=== PATIENT | female | born 1930 | race Caucasian/White ===

== ENCOUNTER 2016-08-13 20:40 | Emergency (ER) | payer MEDICARE, OTHER ==
[2016-08-13] MEDS ORDERED: SODIUM CHLORIDE 0.9% 1,000 ML IV STA (22:07)
[2016-08-13] MEDS ORDERED: ACETAMINOPHEN TAB 500 MG TAB PO STA (22:07)
--- NOTE | 2016-08-13 22:22 | ED ---
Fever HPI - General Chief Complaint: Fever Stated Complaint: Anxiety Time Seen by Provider: 08/13/16 21:26 Source: patient Mode of arrival: wheelchair Limitations: no limitations - History of Present Illness Initial Comments: He has a difficulty urinating for the last few days it's painful is more frequent and she feels bit of pressure in the pelvic area, she went to the family doctor they aren't treating her for cystitis with the Macrobid but symptoms are getting worse and today she developed the fever. Notice that mom was shaking and had some breakers she is complaining about some back pain but then she has a chronic back pain for years. Denies any headaches no neck stiffness no chest pain or shortness of breath no abdominal pain diarrhea system is unremarkable otherwise - Related Data Home Medications Medication Instructions Recorded Confirmed Calcium Carbonate [Calcium] 600 mg PO DAILY 08/13/16 08/13/16 Cholecalciferol [Vitamin D3] 1,000 unit PO DAILY 08/13/16 08/13/16 Lisinopril [Zestril] 10 mg PO DAILY 08/13/16 08/13/16 Loratadine [Claritin] 10 mg PO DAILY 08/13/16 08/13/16 traMADol HCL [Ultram] 50 mg PO QID PRN 08/13/16 08/13/16 Previous Rx's Medication Instructions Recorded Ciprofloxacin HCl [Cipro] 500 mg PO Q12HR #20 tablet 08/13/16 Allergies Allergy/AdvReac Type Severity Reaction Status Date / Time aspirin AdvReac Nausea & Verified 08/13/16 22:02 Vomiting Review of Systems ROS Statement: Those systems with pertinent positive or pertinent negative responses have been documented in the HPI. ROS Other: All systems not noted in ROS Statement are negative. Past Medical History Past Medical History: Cancer, Hypertension Additional Past Medical History / Comment(s): Scoliosis; Osteoporosis; Uterine cancer (1970s) History of Any Multi-Drug Resistant Organisms: None Reported Past Surgical History: Cholecystectomy, Hysterectomy Additional Past Surgical History / Comment(s): Lap Chad Past Psychological History: Anxiety Smoking Status: Current every day smoker Past Alcohol Use History: None Reported Past Drug Use History: None Reported General Exam - General Exam Comments Initial Comments: General: The patient is awake and alert, in acute distress face is bit flushed GCS is 15 no respiratory distress Skin: Skin is warm and dry and no rashes or lesions are noted. Eye: Pupils are equal, round and reactive to light, extra-ocular movements are intact; there is normal conjunctiva bilaterally. Ears, nose, mouth and throat: There are moist mucous membranes and no oral lesions. Neck: The neck is supple, there is no tenderness or JVD. Cardiovascular: There is a regular rate and rhythm. No murmur, rub or gallop is appreciated. Respiratory: To auscultation bilateral, decreased breath sounds and crackles at the bases Gastrointestinal: D tender in suprapubic area and over the one side flank but she stated that she has it's back pain for years Back: There is no tenderness to palpation in the midline. There is no obvious deformity. Musculoskeletal: Normal ROM, no tenderness, There is no pedal edema. There is no calf tenderness or swelling. No cords were appreciated. Neurological: CN II-XII intact, Cranial nerves III through XII are intact. There are no obvious motor or sensory deficits. Coordination appears grossly intact. Speech is normal. Psychiatric: Cooperative, appropriate mood & affect, normal judgment. Limitations: no limitations Course Vital Signs 08/13/16 20:53 Temperature 101.2 F H Pulse Rate 95 Respiratory 20 Rate Blood Pressure 215/85 O2 Sat by Pulse 95 Oximetry He was reassessed at 2315 she was advised to stay inpatient for IV antibiotics considering the possibility of pyelonephritis since her urinalysis was positive she developed a fever and she has a flank pain also was concerned about her blood pressure initial blood pressure was 2:15 systolic and now she feels better her blood pressures down to 159 according to the portable blood pressure machine bedside and she has a 2 g of Rocephin and some fluids and she has excellent support she lives with her daughter in her son-in-law and they said the CARE of her if symptoms get worse to bring her back actually I had paged Dr. Cook for the admission but then respecting patient's wishes be sent home on Cipro 500 mg twice daily Tylenol as needed and she does have tramadol in her possession which she uses for the back pain Medical Decision Making - Lab Data Result diagrams: 08/13/16 22:11 08/13/16 22:11 Lab Results 08/13/16 08/13/16 08/13/16 Range/Units 22:11 22:11 22:11 WBC 14.0 H (3.8-10.6) k/uL RBC 4.09 (3.80-5.40) m/uL Hgb 12.1 (11.4-16.0) gm/dL Hct 37.8 (34.0-46.0) % MCV 92.4 (80.0-100.0) fL MCH 29.7 (25.0-35.0) pg MCHC 32.1 (31.0-37.0) g/dL RDW 13.1 (11.5-15.5) % Plt Count 262 (150-450) k/uL Neutrophils % 85 % Lymphocytes % 5 % Monocytes % 6 % Eosinophils % 2 % Basophils % 0 % Neutrophils # 11.9 H (1.3-7.7) k/uL Lymphocytes # 0.7 L (1.0-4.8) k/uL Monocytes # 0.8 (0-1.0) k/uL Eosinophils # 0.3 (0-0.7) k/uL Basophils # 0.0 (0-0.2) k/uL Sodium 138 (137-145) mmol/L Potassium 3.7 (3.5-5.1) mmol/L Chloride 102 (98-107) mmol/L Carbon Dioxide 27 (22-30) mmol/L Anion Gap 9 mmol/L BUN 23 H (7-17) mg/dL Creatinine 0.73 (0.52-1.04) mg/dL Est GFR (MDRD) Af Amer >60 (>60 ml/min/1.73 sqM) Est GFR (MDRD) Non-Af >60 (>60 ml/min/1.73 sqM) Glucose 126 H (74-99) mg/dL Plasma Lactic Acid Vineet 1.0 (0.7-2.0) mmol/L Calcium 10.0 (8.4-10.2) mg/dL Total Bilirubin 0.4 (0.2-1.3) mg/dL AST 30 (14-36) U/L ALT 34 (9-52) U/L Alkaline Phosphatase 96 (38-126) U/L Total Protein 6.8 (6.3-8.2) g/dL Albumin 3.9 (3.5-5.0) g/dL Disposition Clinical Impression: Fever, Cystitis Disposition: HOME SELF-CARE Condition: Fair Instructions: Fever in Adults (ED) Prescriptions: Ciprofloxacin HCl [Cipro] 500 mg PO Q12HR #20 tablet Referrals: Tawnya Dale DO [Primary Care Provider] - 1-2 days
[2016-08-13 22:24] LABS: Basophils % (A) 0 %; CH 30.2; CHCM 32.8; Eosinophils # (A) 0.3 k/uL (0-0.7); Eosinophils % (A) 2 %; HCT 37.8 % (34.0-46.0); HDW 2.39; HGB 12.1 gm/dL (11.4-16.0); Luc # (Auto) 0.21; Luc % (Auto) 2; Lymphocytes # (A) 0.7 k/uL (1.0-4.8); Lymphocytes % (A) 5 %; MCH 29.7 pg (25.0-35.0); MCHC 32.1 g/dL (31.0-37.0); MCV 92.4 fL (80.0-100.0); Mean Platelet Volume 7.2; Monocytes # (A) 0.8 k/uL (0-1.0); Monocytes % (A) 6 %; Neutrophils # (A) 11.9 k/uL (1.3-7.7); Neutrophils % (A) 85 %; RBC 4.09 m/uL (3.80-5.40); RDW 13.1 % (11.5-15.5)
[2016-08-13 22:46] LABS: ALT 34 U/L (9-52); AST 30 U/L (14-36); Alkaline Phosphatase 96 U/L (38-126); Anion Gap 9 mmol/L; Blood Urea Nitrogen 23 mg/dL (7-17); Carbon Dioxide 27 mmol/L (22-30); Chloride 102 mmol/L (98-107); Glucose 126 mg/dL (74-99); Non-African American GFR(MDRD) >60 (>60 ml/min/1.73 sqM); Potassium 3.7 mmol/L (3.5-5.1); Sodium 138 mmol/L (137-145); Total Bilirubin 0.4 mg/dL (0.2-1.3); Total Protein 6.8 g/dL (6.3-8.2)
[2016-08-13 23:40] VITALS: BP 159/69; PULSE 82; RESP 14; TEMP 99.2
[2016-08-13 23:54] LABS: Appearance,Urine Cloudy (Clear); Bilirubin,Urine Negative (Negative); Glucose,Urine (UA) Negative (Negative); Ketones,Urine Negative (Negative); Leukocyte Esterase,Urine Moderate (Negative); Mucus,Urine Rare /hpf; Nitrite,Urine Negative (Negative); Particle Count 6881; Protein,Urine 1+ (Negative); RBC,Urine >182 /hpf (0-5); Specific Gravity,Urine 1.011 (1.001-1.035); Squamous Epithelial Cell,Urine 1 /hpf (0-4); UA Billing (MACRO vs. MICRO) MICRO; Urobilinogen,Urine <2.0 mg/dL (<2.0); WBC,Urine 30 /hpf (0-5)
== END 2016-08-13 23:49 | disposition home or self-care (01) ==
LOC: EC 20:40
DX: N30.90 Cystitis, unspecified without hematuria (principal); R50.9 Fever, unspecified; I10 Essential (primary) hypertension; M81.0 Age-related osteoporosis without current pathological fracture; F17.200 Nicotine dependence, unspecified, uncomplicated; Z79.899 Other long term (current) drug therapy; Z88.6 Allergy status to analgesic agent; Z85.42 Personal history of malignant neoplasm of other parts of uterus; Z90.710 Acquired absence of both cervix and uterus
CPT/HCPCS: 36415; 80053; 83605; 85025; 81001; 87040; 87086; 99283; 96365; 96361; J0696

== ENCOUNTER → 2016-09-22 | Outpatient (CLI) | payer MEDICARE, OTHER ==
--- NOTE | 2016-09-22 16:40 | US ---
EXAMINATION TYPE: US kidneys/renal and bladder DATE OF EXAM: 09/22/2016 COMPARISON: NONE CLINICAL HISTORY: UTI N39.0, R39.14 Incomplete Bladder Emptying. Frequent UTI's, lower back and pelvi c pain EXAM MEASUREMENTS: Right Kidney: 11.3 x 4.8 x 4.3 cm Left Kidney: 9.6 x 4.0 x 3.9 cm Post Void Residual Volume: 596.1 mL Right Kidney: moderate hydronephrosis extending into calyces with multiple echogenic shadowing foci w ithin dilated proximal ureter Left Kidney: mild hydronephrosis extending into calyces, superior pole limited by overlying bowel gas Bladder: multiple echogenic shadowing foci seen posterior to bladder, possible within bladder vs. wit hin ureter Bilateral Jets seen: right jet not seen Normal Post Void Residual: no There is bilateral hydronephrosis, greater on the right left. The posterior wall of the bladder has u nusual echogenicity. The left ureteral jet is visualized the right is not. IMPRESSION: BILATERAL HYDRONEPHROSIS AND AN ABNORMAL APPEARANCE OF THE POSTERIOR WALL OF THE BLADDER WITH ABSENCE OF ONE OF THE URETERAL JETS. A CT SCAN OF THE ABDOMEN AND PELVIS COULD BE SUGGESTED.
== END | disposition home or self-care (01) ==
LOC: RADUSWWP 14:44
PROVIDERS: ATTEND Family Medicine
DX: N13.30 Unspecified hydronephrosis (principal); R93.41 Abnormal radiologic findings on diagnostic imaging of renal pelvis, ureter, or bladder
CPT/HCPCS: 76770

== ENCOUNTER 2018-04-29 22:28 | Emergency (ER) | payer MEDICARE, OTHER ==
[2018-04-29] MEDS ORDERED: MORPHINE SULFATE 2 MG/ML SYRINGE IM STA (23:22)
--- NOTE | 2018-04-29 23:55 | CT ---
EXAMINATION TYPE: CT pelvis wo con DATE OF EXAM: 04/29/2018 COMPARISON: None HISTORY: Hx. of osteoporosis and scoliosis; pt. c/o back pain CT DLP: 276.8 mGycm Automated exposure control for dose reduction was used. FINDINGS: Multiple axial sections were obtained from the top of iliac crests to the subtrochanteric femurs with no contrast. THERE ARE NUMEROUS LARGE CALCIFICATIONS IN THE DEPENDENT DILATED RIGHT RENAL PELVIS. I SEE NO SIGNIFI CANT RENAL ATROPHY. ABDOMINAL AORTA IS ATHEROMATOUS. THE SACRUM IS INTACT. THE SACROILIAC JOINTS ARE INTACT. THE PELVIC RING IS INTACT. THERE IS NARROWING OF HIP JOINT SPACES. THE PROXIMAL FEMURS ARE IN TACT WITHOUT EVIDENCE OF A FRACTURE. THERE ARE MODERATE SPONDYLOTIC CHANGES IN THE LOWER LUMBAR SPINE . THERE IS LARGE URINARY BLADDER WITH CALCIFICATIONS IN THE DEPENDENT BLADDER. URINARY BLADDER MEASUR ES 12 CM. SACRUM AND COCCYX SHOW NO FRACTURE. THERE IS EXTENSIVE ATHEROSCLEROTIC VASCULAR CALCIFICATI ON. 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 No compression fracture. No evidence of pelvic fracture. 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 Bladder calculi. Right renal calculi.
--- NOTE | 2018-04-29 23:58 | CT ---
EXAMINATION TYPE: CT lumbar spine wo con DATE OF EXAM: 04/29/2018 11:48 PM COMPARISON: None HISTORY: Hx. of osteoporosis and scoliosis; pt. c/o back pain CT DLP: 908.6 mGycm Automated exposure control for dose reduction was used. Unenhanced CT of the lumbar spine was performed. Bone and soft tissue window settings are submitted as well as coronal and sagittal reconstructions. There is moderate degenerative disc space narrowing in the lumbar spine with spur formation. There is 5% wedging of L4 vertebra. There is similar 15% wedging of L1 vertebra. L1 fracture could be acute. The posterior elements appear intact. Sacroiliac joints are intact. There is extensive vascular calci fication. There is no evidence of scoliosis. IMPRESSION: There is mild compression fracture of L1 that is probably an acute fracture. Multilevel spondylotic changes.
[2018-04-30] MEDS ORDERED: MORPHINE SULFATE 2 MG/ML SYRINGE IVP STA (00:18)
--- NOTE | 2018-04-30 00:18 | ED ---
Back Pain HPI - General Chief Complaint: Back Pain/Injury Stated Complaint: back pain Source: patient, EMS Limitations: no limitations - History of Present Illness Initial Comments: 88-year-old female past medical history of osteoporosis and chronic back pain presented today for chief complaint of low back pain. Patient states that for the past few year she has had chronic low back pain, she states it was recently agitated after getting on a table for an x-ray notably in the lower aspect of the spine. She states that it is a constant aching pain that becomes sharp with movement. Patient states she feels the pain radiate towards the hips bilaterally. Patient states that since has been painful to walk. Patient denies any numbness, tingling, weakness with this loss of sensation, urinary retention or loss of bowel bladder control. Patient denies any falls within normal the last year. Patient states her last fall was about a year ago. Patient denies any fever, chills. Patient does have history of uterine cancer. Remainder of ROS negative, Patient denies any recent fever, chills, shortness of breath, chest pain, flank pain, abdominal pain, nausea or vomiting, numbness or tingling, dysuria or hematuria, constipation or diarrhea, headaches or visual changes, or any other complaints. Patient states that she is feeling her typical lower back pain that has been ongoing for the past 2 months, however appear to be increased this evening and patient can no longer take the pain. Patient states that her tramadol is not working for pain management. Upon arrival patient appears uncomfortable however in no acute distress. Patient appears nontoxic. - Related Data Home Medications Medication Instructions Recorded Confirmed Calcium Carbonate [Calcium] 600 mg PO DAILY 08/13/16 04/29/18 Cholecalciferol [Vitamin D3] 1,000 unit PO DAILY 08/13/16 04/29/18 Lisinopril [Zestril] 10 mg PO DAILY 08/13/16 04/29/18 Loratadine [Claritin] 10 mg PO DAILY 08/13/16 04/29/18 traMADol HCL [Ultram] 50 mg PO QID PRN 08/13/16 04/29/18 Gabapentin [Neurontin] 1 - 3 cap PO HS 04/29/18 04/29/18 Multivitamins, Thera [Multivitamin 1 tab PO DAILY 04/29/18 04/29/18 (formulary)] Timolol 0.5% Ophth Soln [Timoptic 1 drop LEFT EYE DAILY 04/29/18 04/29/18 0.5% Ophth Soln] Vit C/E/Zn/Coppr/Lutein/Zeaxan 1 cap PO BID 04/29/18 04/29/18 [Preservision Areds 2 Softgel] Previous Rx's Medication Instructions Recorded HYDROcodone/APAP 5-325MG [Basco 5] 1 each PO Q6HR PRN 3 Days #12 tab 04/30/18 Sulfamethox-Tmp 800-160Mg [Bactrim 1 tab PO Q12HR 7 Days #14 tab 04/30/18 DS 800-160 mg] Allergies Allergy/AdvReac Type Severity Reaction Status Date / Time aspirin AdvReac Nausea & Verified 04/29/18 23:18 Vomiting Review of Systems ROS Statement: Those systems with pertinent positive or pertinent negative responses have been documented in the HPI. ROS Other: All systems not noted in ROS Statement are negative. Past Medical History Past Medical History: Cancer, Hypertension Additional Past Medical History / Comment(s): Scoliosis; Osteoporosis; Uterine cancer (1970s) History of Any Multi-Drug Resistant Organisms: None Reported Past Surgical History: Cholecystectomy, Hysterectomy Additional Past Surgical History / Comment(s): Lap Chad Past Psychological History: Anxiety Smoking Status: Current every day smoker Past Alcohol Use History: None Reported Past Drug Use History: None Reported General Exam - General Exam Comments Initial Comments: General: The patient is awake and alert, in no distress, and does not appear acutely ill. Eye: Pupils are equal, round and reactive to light, extra-ocular movements are intact. No nystagmus. There is normal conjunctiva bilaterally. No signs of icterus. Ears, nose, mouth and throat: There are moist mucous membranes and no oral lesions. Neck: The neck is supple, there is no tenderness or JVD. Cardiovascular: There is a regular rate and rhythm. No murmur, rub or gallop is appreciated. Respiratory: Lungs are clear to auscultation, respirations are non-labored, breath sounds are equal. No wheezes, stridor, rales, or rhonchi. Gastrointestinal: Soft, non-distended, non-tender abdomen without masses or organomegaly noted. There is no rebound or guarding present. Bowel sounds are unremarkable. Musculoskeletal: Normal inspection of the cervical thoracic and lumbar spine. Patient is tender both paravertebral and midline of the lumbar spine. Normal ROM of the lower extremities equal bilaterally, no tenderness. No pending tenderness to the palpation of the hips. Strength 5/5 of the upper and lower extremities equal bilaterally. Sensation intact of the lower extremities equal bilaterally including the saddle region. DP pulses equal bilaterally 2+. Capillary refill <2 seconds. Neurological: A&O x 3. CN II-XII intact, There are no obvious motor or sensory deficits. Coordination appears grossly intact. Speech is normal. Skin: Skin is warm and dry and no rashes or lesions are noted. Psychiatric: Cooperative, appropriate mood & affect, normal judgment. Limitations: no limitations Course Vital Signs 04/29/18 04/29/18 04/29/18 22:30 22:55 23:54 Temperature 97.9 F Pulse Rate 114 H 92 Respiratory 18 18 Rate Blood Pressure 217/117 200/88 191/82 O2 Sat by Pulse 97 100 Oximetry 04/30/18 04/30/18 00:17 01:42 Temperature 98.1 F Pulse Rate 89 80 Respiratory 18 16 Rate Blood Pressure 163/83 168/78 O2 Sat by Pulse 94 L 95 Oximetry Medical Decision Making - Medical Decision Making CT revealed a compression fracture of L1, this appears acute. This seems consistent patient's symptoms and PE findings-renal calculi also noted, however pt symptoms do not appear consistent with renal colic. Patient neurovascular intact. No signs Of cauda equina. Patient afebrile appearing well. Patient's family states she seems to use the bathroom unusual and were concerned about urinary tract infection. Patient denies any symptoms. Urine concerning for infection, culture pending. Patient started on Bactrim twice a day 7 days. Case discussed the timing provider Dr. Schroeder at this time we do feel patient is stable for discharge with orthopedic surgery follow-up on Wednesday. Patient is agreeable plan discharge. Return parameters were discussed at length with both family and patient. Patient's power of manuscripts archivist is her daughter was requesting medication for better pain management. Patient was given prescription for Basco , 3 day supply, did instruct patient to discontinue use of tramadol. Patient and family are unable with the medication regimen for pain control. Patient discharged stable condition appearing well. - Lab Data Lab Results 04/30/18 Range/Units 00:28 Urine Color Light Yellow Urine Appearance Cloudy H (Clear) Urine pH 6.5 (5.0-8.0) Ur Specific [place] 1.006 (1.001-1.035) Urine Protein 2+ H (Negative) Urine Glucose (UA) Negative (Negative) Urine Ketones Negative (Negative) Urine Blood Moderate H (Negative) Urine Nitrite Negative (Negative) Urine Bilirubin Negative (Negative) Urine Urobilinogen <2.0 (<2.0) mg/dL Ur Leukocyte Esterase Large H (Negative) Urine RBC 164 H (0-5) /hpf Urine WBC 33 H (0-5) /hpf Urine WBC Clumps Few H (None) /hpf Ur Squamous Epith Cells <1 (0-4) /hpf Urine Bacteria Rare H (None) /hpf Disposition Clinical Impression: Compression fracture of L1 lumbar vertebra, UTI (urinary tract infection) Disposition: HOME SELF-CARE Condition: Good Instructions (If sedation given, give patient instructions): Vertebral Compression Fracture (ED) Additional Instructions: Please use medication as discussed. Please discontinue Tramadol as discussed. Please follow-up with family doctor in the next 2 days, please follow-up with orthopedic surgery in the next 3-4 days. Please return to emergency room if the symptoms increase or worsen or for any other concerns. Prescriptions: HYDROcodone/APAP 5-325MG [Basco 5] 1 each PO Q6HR PRN 3 Days #12 tab PRN Reason: Severe Pain Sulfamethox-Tmp 800-160Mg [Bactrim DS 800-160 mg] 1 tab PO Q12HR 7 Days #14 tab Is patient prescribed a controlled substance at d/c from ED?: Yes When asked, does pt state using other controlled substances?: Yes If prescribed controlled substance>3 days was MAPS reviewed?: Prescribed <3 Days If opioid is for acute pain is fill amount 7 days or less?: Yes If Rx opioid, was Start Talking consent form obtained?: Yes Referrals: Tawnya Dale DO [Primary Care Provider] - 1-2 days Raciel Ross DO [Medical Doctor] - 1-2 days Time of Disposition: 00:20
[2018-04-30 01:02] LABS: Appearance,Urine Cloudy (Clear); Bacteria,Urine Rare /hpf; Bilirubin,Urine Negative (Negative); Blood,Urine Moderate (Negative); Color,Urine Light Yellow; Glucose,Urine (UA) Negative (Negative); Ketones,Urine Negative (Negative); Leukocyte Esterase,Urine Large (Negative); Nitrite,Urine Negative (Negative); PH, Urine 6.5 (5.0-8.0); Protein,Urine 2+ (Negative); RBC,Urine 164 /hpf (0-5); Specific Gravity,Urine 1.006 (1.001-1.035); Squamous Epithelial Cell,Urine <1 /hpf (0-4); Urobilinogen,Urine <2.0 mg/dL (<2.0); WBC,Urine 33 /hpf (0-5)
[2018-04-30 01:43] VITALS: BP 168/78; PULSE 80; RESP 16; TEMP 98.1
== END 2018-04-30 01:20 | disposition home or self-care (01) ==
LOC: EC 22:28
DX: M48.56XA Collapsed vertebra, not elsewhere classified, lumbar region, initial encounter for fracture (principal); N39.0 Urinary tract infection, site not specified; N20.0 Calculus of kidney; I10 Essential (primary) hypertension; F17.200 Nicotine dependence, unspecified, uncomplicated; Z79.899 Other long term (current) drug therapy; Z88.6 Allergy status to analgesic agent; Z85.42 Personal history of malignant neoplasm of other parts of uterus
CPT/HCPCS: 81001; 87086; 72192; 72131; 99284; 96374; 96372; J2270 ×2

== ENCOUNTER 2018-05-14 04:21 | Observation (INO) | payer MEDICARE, OTHER ==
[2018-05-14] MEDS ORDERED: MORPHINE SULFATE 4 MG/ML SYRINGE IM STA (05:11)
[2018-05-14] MEDS ORDERED: IBUPROFEN 400 MG TAB PO STA (05:11)
[2018-05-14] MEDS ORDERED: HYDROmorphone 1 MG/ML 1 ML SYRINGE IM STA (06:21)
--- NOTE | 2018-05-14 07:16 | ED ---
Back Pain [facility] - General Chief Complaint: Back Pain/Injury Stated Complaint: back pain Time Seen by Provider: 05/14/18 04:36 Source: patient Limitations: physical limitation - History of Present Illness Initial Comments: This patient is an 88-year-old woman who presents to be evaluated for severe low back pain. The patient states that she had a fall over 2 months ago. She did have some pain there but it was doing okay for a while and then over the past couple of weeks has had worsening of the pain. She was seen here at the end of April, and told that a CAT scan showed a compression fracture. The patient has been taking prescription analgesics without much relief. She states that tonight she has not been able to sleep. She feels that when she lies in bed makes her back pain worse. She has not found anything that relieves the pain. Patient denies weakness or numbness of the extremities. With some movements there is radiation of the pain to the extremities. Patient denies loss of bladder or bowel control. MD Complaint: back pain, back injury -: week(s) Similar Symptoms Previously: Yes Place: home Radiation: left leg, right leg Severity: severe Quality: sharp Consistency: constant Improves With: none Worsens With: none Context: bending Associated Symptoms: denies other symptoms - Related Data Home Medications Medication Instructions Recorded Confirmed Calcium Carbonate [Calcium] 600 mg PO DAILY 08/13/16 05/14/18 Cholecalciferol [Vitamin D3] 1,000 unit PO DAILY 08/13/16 05/14/18 Lisinopril [Zestril] 10 mg PO DAILY 08/13/16 05/14/18 traMADol HCL [Ultram] 50 mg PO QID 08/13/16 05/14/18 Multivitamins, Thera [Multivitamin 1 tab PO DAILY 04/29/18 05/14/18 (formulary)] Timolol 0.5% Ophth Soln [Timoptic 1 drop LEFT EYE DAILY 04/29/18 05/14/18 0.5% Ophth Soln] Vit C/E/Zn/Coppr/Lutein/Zeaxan 1 cap PO BID 04/29/18 05/14/18 [Preservision Areds 2 Softgel] ALPRAZolam [Xanax] 0.25 mg PO BID PRN 05/14/18 05/14/18 oxyCODONE-APAP 7.5-325MG [Percocet 1 tab PO Q8H PRN 05/14/18 05/14/18 7.5-325 mg] Allergies Allergy/AdvReac Type Severity Reaction Status Date / Time aspirin AdvReac Nausea & Verified 05/14/18 10:57 Vomiting Review of Systems ROS Statement: Those systems with pertinent positive or pertinent negative responses have been documented in the HPI. ROS Other: All systems not noted in ROS Statement are negative. Constitutional: Denies: fever, chills, weakness Respiratory: Denies: cough, dyspnea Cardiovascular: Denies: chest pain, edema Gastrointestinal: Denies: abdominal pain, vomiting, diarrhea, constipation Genitourinary: Denies: dysuria, hematuria Musculoskeletal: Reports: as per HPI, back pain Skin: Denies: rash Neurological: Denies: headache, weakness, numbness Past Medical History Past Medical History: Cancer, Hypertension Additional Past Medical History / Comment(s): Scoliosis; Osteoporosis; Uterine cancer (1970s) History of Any Multi-Drug Resistant Organisms: None Reported Past Surgical History: Cholecystectomy, Hysterectomy Additional Past Surgical History / Comment(s): Lap Chad Past Psychological History: Anxiety Smoking Status: Current every day smoker Past Alcohol Use History: None Reported Past Drug Use History: None Reported General Exam Limitations: physical limitation General appearance: alert, in no apparent distress, cachectic Head exam: Present: atraumatic, normocephalic Respiratory exam: Present: normal lung sounds bilaterally. Absent: respiratory distress, wheezes, rales, rhonchi, stridor Cardiovascular Exam: Present: regular rate, normal rhythm, systolic murmur. Absent: diastolic murmur, rubs, gallop GI/Abdominal exam: Present: soft. Absent: tenderness, guarding, rebound, mass Extremities exam: Present: normal inspection, normal capillary refill. Absent: pedal edema, calf tenderness Back exam: Present: vertebral tenderness (approx L1 level). Absent: CVA tenderness (R), CVA tenderness (L) Neurological exam: Present: alert Skin exam: Present: warm, dry, intact, normal color. Absent: rash Course Vital Signs 05/14/18 05/14/18 05/14/18 04:26 05:49 06:30 Temperature 97.7 F Pulse Rate 70 70 69 Pulse Rate [ Apical] Respiratory 20 16 16 Rate Blood Pressure 146/86 130/59 130/59 Blood Pressure [Left Arm] O2 Sat by Pulse 95 96 96 Oximetry 05/14/18 05/14/18 09:01 09:15 Temperature 97.7 F 98.2 F Pulse Rate 75 Pulse Rate [ 72 Apical] Respiratory 16 16 Rate Blood Pressure 120/66 Blood Pressure 140/64 [Left Arm] O2 Sat by Pulse 96 Oximetry Medical Decision Making - Medical Decision Making Patient is an 88-year-old woman presenting with intractable back pain. We did try multiple rounds of medication but the patient was not able to get up and ambulate. Case discussed with Dr. Odell, covering for her primary physician. He will admit with consultation to Dr. Pearson Disposition Clinical Impression: Compression fracture of L1 lumbar vertebra, Intractable low back pain Disposition: ADMITTED IP TO THIS [facility] Condition: Poor
[2018-05-14] MEDS ORDERED: MORPHINE SULFATE 4 MG/ML SYRINGE IV PRN (07:17)
[2018-05-14] MEDS ORDERED: NALOXONE 0.4 MG/ML 1 ML VIAL IV PRN (07:17)
[2018-05-14] MEDS ORDERED: ACETAMINOPHEN TAB 325 MG TAB PO PRN (07:17)
[2018-05-14] MEDS ORDERED: SULFAMETHOX-TMP 800-160MG 1 EACH TAB PO SCH (09:00)
--- NOTE | 2018-05-14 11:39 | P.CNOR ---
History of Present Illness - [facility] Consult date: 05/14/18 Consult reason: low back pain (L1 compression fracture.) History of present illness: This is an 88-year-old female who is admitted with intractable back pain. She states that she does have history of a fall a couple of months ago. She states her back pain did not become severe until a week or 2 ago. She states that she is not aware of a recent fall. She is somewhat of a poor historian. She was seen in the emergency department about a week ago. A computed tomography scan was done which showed a mild L1 compression deformity. She returned to the ER yesterday with increasing low back pain. She was supposed see Dr. Pearson in our office for an appointment but states that she was unable to take the pain any longer. Past Medical History Past Medical History: Cancer, Hypertension Additional Past Medical History / Comment(s): Scoliosis; Osteoporosis; Uterine cancer (1970s) History of Any Multi-Drug Resistant Organisms: None Reported Past Surgical History: Cholecystectomy, Hysterectomy Additional Past Surgical History / Comment(s): Reddy Bonilla Past Psychological History: Anxiety Smoking Status: Former smoker Past Alcohol Use History: None Reported Past Drug Use History: None Reported Medications and Allergies Home Medications Medication Instructions Recorded Confirmed Type Calcium Carbonate [Calcium] 600 mg PO DAILY 08/13/16 05/14/18 History Cholecalciferol [Vitamin D3] 1,000 unit PO DAILY 08/13/16 05/14/18 History Lisinopril [Zestril] 10 mg PO DAILY 08/13/16 05/14/18 History traMADol HCL [Ultram] 50 mg PO QID 08/13/16 05/14/18 History Multivitamins, Thera [Multivitamin 1 tab PO DAILY 04/29/18 05/14/18 History (formulary)] Timolol 0.5% Ophth Soln [Timoptic 1 drop LEFT EYE DAILY 04/29/18 05/14/18 History 0.5% Ophth Soln] Vit C/E/Zn/Coppr/Lutein/Zeaxan 1 cap PO BID 04/29/18 05/14/18 History [Preservision Areds 2 Softgel] ALPRAZolam [Xanax] 0.25 mg PO BID PRN 05/14/18 05/14/18 History oxyCODONE-APAP 7.5-325MG [Percocet 1 tab PO Q8H PRN 05/14/18 05/14/18 History 7.5-325 mg] Allergies Allergy/AdvReac Type Severity Reaction Status Date / Time aspirin AdvReac Nausea & Verified 05/14/18 10:57 Vomiting Physical Examination This is a pleasant 88-year-old female in no acute distress. She is alert and oriented to person and place. She has some confusion as far as recent events. Exam of the head neck reveal no obvious deformity. She has full cervical spine motion without difficulty or pain. No pain with palpation about cervical spine or paraspinal musculature. Exam of the thoracic and lumbar spine reveal no obvious deformity. There is pain with palpation about the upper lumbar and lower thoracic spine. Increased pain with percussion of the upper lumbar spine. Exam of the lower extremities reveals no obvious deformity. She is able to lift each leg off the bed independently. She has no pain with logroll bilaterally. She has full foot and ankle motion without difficulty or pain. Neurovascular status to the lower extremities is intact. Results X-ray and CT of the lumbar spine taken one week ago reveal degenerative arthritis and disc disease throughout. There is a mild anterior compression of L1. No displacement or retropulsion noted. No other fractures identified. Assessment and Plan (1) Compression fracture of L1 lumbar vertebra Current Visit: No Status: Acute Code(s): S32.010A - WEDGE COMPRESSION FRACTURE OF FIRST LUMBAR VERTEBRA, INIT SNOMED Code(s): 490237851 Plan: The clinical and x-ray findings are discussed with the patient. Family was present but left during the examination. The case was discussed with Dr. Pearson. I will order an LSO brace for immobilization and comfort. She may be up with the brace on. We will continue to follow.
[2018-05-14] MEDS: CALCIUM CARBONATE 500 MG CHEWABLE PO SCH ×2 (13:00→13:09)
[2018-05-14] MEDS: CHOLECALCIFEROL 1,000 UNIT TAB PO SCH (13:00)
[2018-05-14] MEDS: MULTIVITAMINS, THERA 1 EACH TAB PO SCH (13:00)
[2018-05-14] MEDS: LISINOPRIL 10 MG TAB PO SCH (13:00)
[2018-05-14] MEDS: HYDROcodone/APAP 5-325MG 1 EACH TAB PO PRN ×2 (13:00→19:09)
[2018-05-14] MEDS: methylPREDNISolone SOD SUCCI 125 MG/2 ML VIAL IV SCH (13:01)
[2018-05-14] MEDS: FAMOTIDINE 20 MG TAB PO SCH ×2 (13:01→20:15)
--- NOTE | 2018-05-14 14:40 | P.HPIM ---
History of Present Illness H&P Date: 05/14/18 Bisi Kessler is an 88-year-old female who presented to [facility] emergency room due to intractable back pain and physical debility with gait disturbance. She was evaluated in emergency room lumbar spine x-ray revealed evidence of a wedge fracture of L1 vertebrae. Patient was having difficulty standing up or walking, she was admitted to medical floor, neurosurgical consultation was requested. Patient stated that she had a fall about 1 month ago, she was having some mild back pain however she started having more severe pain about 1 week ago, she denies having any more recent falls. Patient developed difficulty getting up standing and walking due to severe pain. She was evaluated in emergency room and was started on pain medication and was admitted to medical floor. Past Medical History Past Medical History: Cancer, Hypertension Additional Past Medical History / Comment(s): Scoliosis; Osteoporosis; Uterine cancer (1970s) History of Any Multi-Drug Resistant Organisms: None Reported Past Surgical History: Cholecystectomy, Hysterectomy Additional Past Surgical History / Comment(s): Reddy Bonilla Past Psychological History: Anxiety Smoking Status: Former smoker Past Alcohol Use History: None Reported Past Drug Use History: None Reported Medications and Allergies Home Medications Medication Instructions Recorded Confirmed Type Calcium Carbonate [Calcium] 600 mg PO DAILY 08/13/16 05/14/18 History Cholecalciferol [Vitamin D3] 1,000 unit PO DAILY 08/13/16 05/14/18 History Lisinopril [Zestril] 10 mg PO DAILY 08/13/16 05/14/18 History traMADol HCL [Ultram] 50 mg PO QID 08/13/16 05/14/18 History Multivitamins, Thera [Multivitamin 1 tab PO DAILY 04/29/18 05/14/18 History (formulary)] Timolol 0.5% Ophth Soln [Timoptic 1 drop LEFT EYE DAILY 04/29/18 05/14/18 History 0.5% Ophth Soln] Vit C/E/Zn/Coppr/Lutein/Zeaxan 1 cap PO BID 04/29/18 05/14/18 History [Preservision Areds 2 Softgel] ALPRAZolam [Xanax] 0.25 mg PO BID PRN 05/14/18 05/14/18 History oxyCODONE-APAP 7.5-325MG [Percocet 1 tab PO Q8H PRN 05/14/18 05/14/18 History 7.5-325 mg] Allergies Allergy/AdvReac Type Severity Reaction Status Date / Time aspirin AdvReac Nausea & Verified 05/14/18 10:57 Vomiting Physical Exam Vitals: Vital Signs Temp Pulse Pulse Resp BP BP Pulse Ox 05/14/18 09:15 98.2 F 75 16 120/66 96 05/14/18 09:01 97.7 F 72 16 140/64 05/14/18 06:30 69 16 130/59 96 05/14/18 05:49 70 16 130/59 96 05/14/18 04:26 97.7 F 70 20 146/86 95 Intake and Output 05/13/18 05/14/18 05/14/18 22:59 06:59 14:59 Other: Weight 49.033 kg In general patient is alert and oriented 3 in no apparent distress HEENT head normocephalic and atraumatic Neck is supple no JVD no goiter no lymphadenopathy Chest exam reveals a few scattered crackles no wheezing Cardiac exam reveals regular heart sounds S1 and S2 no gallops no murmurs Abdomen is soft nontender no organomegaly with normal bowel sounds Extremity exam reveals no edema no cyanosis or clubbing Neurological examination reveals no gross focal deficit Thrombosis Risk Factor Assmnt - Choose All That Apply Any of the Below Risk Factors Present?: Yes Each Factor Represents 1 point: Medical pt on bed rest Other Risk Factors: Yes Each Risk Factor Represents 3 Points: Age 75 years or older Other congenital or acquired thrombophilia - If yes, enter type in comment: No Thrombosis Risk Factor Assessment Total Risk Factor Score: 4 Thrombosis Risk Factor Assessment Level: Moderate Risk Assessment and Plan Plan: #1 L1 wedge vertebral fracture #2 intractable back pain #3 physical debility with difficulty standing up and walking #4 underlying history of hypertension well-controlled on lisinopril #5 underlying history of anxiety disorder At this time patient is admitted to medical floor Neurosurgery consultation was requested patient will be fitted for LSO brace Pain management with oral tramadol and oral [place] as needed Physical therapy consultation was requested for evaluation and treatment patient may need to be transferred to a rehab unit after this acute admission For DVT prophylaxis subcu Lovenox for GI prophylaxis oral Pepcid Will follow closely
[2018-05-14] MEDS: traMADol 50 MG TAB PO PRN (15:26)
[2018-05-14] MEDS: ENOXAPARIN 40 MG/0.4 ML SYRINGE SQ SCH (15:46)
[2018-05-14] MEDS: SODIUM CHLORIDE 0.9% 1,000 ML IV SCH (15:46)
[2018-05-14] MEDS: TIMOLOL 0.5% OPHTH DROPS 5 ML BTL LEFT EYE SCH (20:15)
[2018-05-14] MEDS: HYDROmorphone 0.5 MG/0.5 ML SYRINGE IVP PRN (21:39)
[2018-05-15] MEDS: HYDROmorphone 0.5 MG/0.5 ML SYRINGE IVP PRN ×3 (04:55→19:56)
[2018-05-15] MEDS: ENOXAPARIN 40 MG/0.4 ML SYRINGE SQ SCH (08:07)
[2018-05-15] MEDS: CALCIUM CARBONATE 500 MG CHEWABLE PO SCH (08:08)
[2018-05-15] MEDS: FAMOTIDINE 20 MG TAB PO SCH ×2 (08:08→20:09)
[2018-05-15] MEDS: CHOLECALCIFEROL 1,000 UNIT TAB PO SCH (08:08)
[2018-05-15] MEDS: MULTIVITAMINS, THERA 1 EACH TAB PO SCH (08:08)
[2018-05-15] MEDS: methylPREDNISolone SOD SUCCI 125 MG/2 ML VIAL IV SCH (08:09)
[2018-05-15] MEDS: LISINOPRIL 10 MG TAB PO SCH ×2 (08:18→09:00)
[2018-05-15] MEDS: HYDROcodone/APAP 5-325MG 1 EACH TAB PO PRN ×3 (10:48→23:09)
--- NOTE | 2018-05-15 11:12 | P.PN ---
Progress Note - Text Progress Note Date: 05/15/18 Patient is seen and examined today at bedside. She feels that her pain may have improved but it is difficult to determine if it is due to the tight lauded that she received or the steroid. She is having some symptoms of radiculopathy at her right lower extremity. She is not having weakness. Pain is being controlled with medication, but she still feels that the pain is quite severe for her. Physical Exam Afebrile with stable vital signs Abdomen is soft nontender. Chest has good excursion deep and space expiration Extremities have not had neurologic change from from yesterday she has sustained dorsal trochanter flexion and EHL. She is able to flex her legs up off the bed independently.. Calves and thighs were soft nontender without evidence of DVT. Assessment/Plan The patient has a L1 fracture Shows a significant degenerative disc disease and spondylosis her lower lumbar spine with lower extremity radiculopathy She is not able to tolerate the brace due to sensitivity with anything touching her lower back. They're attempting another brace for her. We will continue the IV steroid medications see if this alleviates some of her degenerative exacerbation. With her radicular symptoms she may have some benefit with interventional pain management. She is not a good candidate for surgical intervention and we do not have any plans for surgery for her. We will counseling interventional pain management She may need placement post hospitalization counseled case management We will continue to increase the patient's mobilization with therapy. We will continue pain control with oral or IV medications. We'll continue to follow patient closely.
--- NOTE | 2018-05-15 12:52 | P.PN ---
Subjective Progress Note Date: 05/15/18 Bisi Kessler is an 88-year-old female who presented to [facility] emergency room due to intractable back pain and physical debility with gait disturbance. She was evaluated in emergency room lumbar spine x-ray revealed evidence of a wedge fracture of L1 vertebrae. Patient was having difficulty standing up or walking, she was admitted to medical floor, neurosurgical consultation was requested. Patient stated that she had a fall about 1 month ago, she was having some mild back pain however she started having more severe pain about 1 week ago, she denies having any more recent falls. Patient developed difficulty getting up standing and walking due to severe pain. She was evaluated in emergency room and was started on pain medication and was admitted to medical floor. On 05/15/2018 patient was seen and examined on the medical floor she is alert and oriented 3 in no apparent distress she is complaining of back pain otherwise no complaints there is no fever or chills no headache or dizziness no chest pain no shortness of breath no cough no nausea or vomiting no abdominal pain no diarrhea and no urinary symptoms Objective - Vital Signs Vital signs: Vital Signs Temp 97.6 F 05/15/18 07:00 Pulse 83 05/15/18 07:00 Resp 17 05/15/18 07:00 BP 180/78 05/15/18 07:00 Pulse Ox 98 05/15/18 01:00 Intake & Output 05/14/18 05/15/18 05/15/18 18:59 06:59 18:59 Intake Total 500 1165 Balance 500 1165 Intake: Intake, IV Titration 160 Amount Sodium Chloride 0.9% 1, 160 000 ml @ 20 mls/hr IV . Q24H [facility] Rx#:[id number] Oral 500 1005 Other: # Voids 1 3 1 - Exam In general patient is alert and oriented 3 in no apparent distress HEENT head normocephalic and atraumatic Neck is supple no JVD no goiter no lymphadenopathy Chest exam reveals a few scattered crackles no wheezing Cardiac exam reveals regular heart sounds S1 and S2 no gallops no murmurs Abdomen is soft nontender no organomegaly with normal bowel sounds Extremity exam reveals no edema no cyanosis or clubbing Neurological examination reveals no gross focal deficit Assessment and Plan Plan: #1 L1 wedge vertebral fracture #2 intractable back pain #3 physical debility with difficulty standing up and walking #4 underlying history of hypertension well-controlled on lisinopril #5 underlying history of anxiety disorder At this time patient is admitted to medical floor Neurosurgery consultation was requested patient will be fitted for LSO brace Pain management with oral tramadol and oral [place] as needed Physical therapy consultation was requested for evaluation and treatment patient may need to be transferred to a rehab unit after this acute admission For DVT prophylaxis subcu Lovenox for GI prophylaxis oral Pepcid Will follow closely
[2018-05-15] MEDS: TIMOLOL 0.5% OPHTH DROPS 5 ML BTL LEFT EYE SCH (17:07)
[2018-05-15] MEDS: SODIUM CHLORIDE 0.9% 1,000 ML IV SCH (17:43)
--- NOTE | 2018-05-15 19:59 | P.CONS ---
History of Present Illness - Reason for Consult Consult date: 05/15/18 - History of Present Illness This is 88 years old female, with a one-to two weeks history of severe low back pain, patient was admitted to [facility] because of increasing low back pain that is not manageable as an outpatient, computed tomography scan showed patient had a compression fracture at L1, patient was evaluated by orthopedic surgery, and recommended conservative treatment, patient reported that most of her pain localized in the back area, with the relatively radiated to the lower extremity, she denies any fever or night sweats, she denies any change in the bowel movement or urination, she had no motor or sensory deficit, patient reported that her pain improved significantly today after she was started on IV steroids, and also she started on oral pain medication Past Medical History Past Medical History: Cancer, Hypertension Additional Past Medical History / Comment(s): Scoliosis; Osteoporosis; Uterine cancer (1970s) History of Any Multi-Drug Resistant Organisms: None Reported Past Surgical History: Cholecystectomy, Hysterectomy Additional Past Surgical History / Comment(s): Reddy Bonilla Past Psychological History: Anxiety Smoking Status: Current every day smoker Past Alcohol Use History: None Reported Past Drug Use History: None Reported Medications and Allergies Home Medications Medication Instructions Recorded Confirmed Type Calcium Carbonate [Calcium] 600 mg PO DAILY 08/13/16 05/14/18 History Cholecalciferol [Vitamin D3] 1,000 unit PO DAILY 08/13/16 05/14/18 History Lisinopril [Zestril] 10 mg PO DAILY 08/13/16 05/14/18 History traMADol HCL [Ultram] 50 mg PO QID 08/13/16 05/14/18 History Multivitamins, Thera [Multivitamin 1 tab PO DAILY 04/29/18 05/14/18 History (formulary)] Timolol 0.5% Ophth Soln [Timoptic 1 drop LEFT EYE DAILY 04/29/18 05/14/18 History 0.5% Ophth Soln] Vit C/E/Zn/Coppr/Lutein/Zeaxan 1 cap PO BID 04/29/18 05/14/18 History [Preservision Areds 2 Softgel] ALPRAZolam [Xanax] 0.25 mg PO BID PRN 05/14/18 05/14/18 History oxyCODONE-APAP 7.5-325MG [Percocet 1 tab PO Q8H PRN 05/14/18 05/14/18 History 7.5-325 mg] Allergies Allergy/AdvReac Type Severity Reaction Status Date / Time aspirin AdvReac Nausea & Verified 05/14/18 10:57 Vomiting Physical Exam Vitals: Vital Signs Temp Pulse Resp BP Pulse Ox 05/15/18 15:25 97.6 F 86 17 137/64 05/15/18 07:00 97.6 F 83 17 180/78 05/15/18 01:00 97.4 F L 66 16 124/54 98 05/15/18 00:55 16 05/14/18 20:15 96 16 05/14/18 20:00 98.1 F 96 16 171/81 100 Intake and Output 05/15/18 05/15/18 05/15/18 06:59 14:59 22:59 Intake Total 685 Balance 685 Intake: Intake, IV Titration 160 Amount Sodium Chloride 0.9% 1, 160 000 ml @ 20 mls/hr IV . Q24H [facility] Rx#:[id number] Oral 525 Other: # Voids 3 2 Physical Examinations : -Constitutiona : Cooperative , not in acute distress . -HEENT : nech ; supple , no Lymphadenopathy , normal thyroid size . eyes : no ptosis , no icterus, no photophobia . ENT : normal of hearing , normal oropharynx , no Thrush . - Respiratory : Chest clear to auscultations Bilaterally , no wheezing , no Rhonchi . - Cardiovascula : regular rate and rhythem , S1 , S2 , no S3 , no S4. - Gastrointestina : abdomen soft no tenderness , bowel sounds , no organomegally . - Genitourinary : Defferred . - neurologic : Cranial nerve II to XII intact , no focal neurological deffecit . -psychatric : alert , oriented X 3 , appropriate affect , intact judgment and insight . -Lymphatic : no Lymphadenopathy . - musculoskeltal : Lumber spine moter stegnth lower extremities ,thigh and legs 4/5 Right side , 4/5 Left side deep tendon reflexes : normal Knee Jerk , normal ankle Jerk positive lumber facet Loading Test Range of motion of the lumbar spine Flexion 45degrees, extension 10 degrees strait leg raising test negative bilaterally Fabere test negative bilaterally Sever tenderness over the upper lumbar area in the lumbar paravertebral muscles [place] test negative bilaterally. Seated flexion test negative bilaterally. Results Comments: Computed tomography scan of the lumbar spine= L1 compression fracture, lumbar degenerative disc L4 5 and L5-S1 lumbar spondylosis with lumbar facet arthropathy Assessment and Plan Plan: Assessment and plan= acute low back pain secondary to lumbar compression fracture, at L1 , and lumbar spondylosis, with secondary muscle spasm in the lumbar area, patient had no focal neurological deficit , Dr. Pearson orthopedic spine surgeon recommended LSO Brace , also patient was started on IV steroid and oral pain medication pain medication ,and she reports that her pain improved significantly ,with the current medication, discussed with the patient option of doing a trigger point injection ,and lumbar epidural steroid injection , patient preferred to continue ,the current medication management, and she preferred not to have, pain management interventions, patient can follow-up with the pain clinic as an outpatient Time with Patient: Less than 30
[2018-05-16 00:44] VITALS: RESP 16
[2018-05-16] MEDS: traMADol 50 MG TAB PO PRN ×2 (01:57→08:42)
[2018-05-16] MEDS: HYDROcodone/APAP 5-325MG 1 EACH TAB PO PRN ×2 (04:21→13:58)
[2018-05-16 07:11] VITALS: BP 150/75; PULSE 63; TEMP 97.5
[2018-05-16 07:46] LABS: Basophils # (A) 0.1 k/uL (0-0.2); Basophils % (A) 1 %; Eosinophils # (A) 0.2 k/uL (0-0.7); Eosinophils % (A) 2 %; HCT 31.7 % (34.0-46.0); HGB 9.9 gm/dL (11.4-16.0); Lymphocytes # (A) 1.7 k/uL (1.0-4.8); Lymphocytes % (A) 19 %; MCH 28.3 pg (25.0-35.0); MCHC 31.3 g/dL (31.0-37.0); MCV 90.4 fL (80.0-100.0); Mean Platelet Volume 6.9; Monocytes # (A) 0.8 k/uL (0-1.0); Monocytes % (A) 9 %; Neutrophils # (A) 6.1 k/uL (1.3-7.7); Neutrophils % (A) 68 %; Platelet Count 448 k/uL (150-450); RDW 13.5 % (11.5-15.5); WBC 8.9 k/uL (3.8-10.6)
[2018-05-16 07:55] LABS: Albumin 3.6 g/dL (3.5-5.0); Calcium 9.9 mg/dL (8.4-10.2); Potassium 4.5 mmol/L (3.5-5.1); Total Bilirubin 0.2 mg/dL (0.2-1.3); Total Protein 6.2 g/dL (6.3-8.2)
[2018-05-16] MEDS: LISINOPRIL 10 MG TAB PO SCH (08:41)
[2018-05-16] MEDS: MULTIVITAMINS, THERA 1 EACH TAB PO SCH (08:41)
[2018-05-16] MEDS: CALCIUM CARBONATE 500 MG CHEWABLE PO SCH (08:42)
[2018-05-16] MEDS: methylPREDNISolone SOD SUCCI 125 MG/2 ML VIAL IV SCH (08:43)
[2018-05-16] MEDS: ENOXAPARIN 40 MG/0.4 ML SYRINGE SQ SCH (08:43)
[2018-05-16] MEDS: CHOLECALCIFEROL 1,000 UNIT TAB PO SCH (08:43)
[2018-05-16] MEDS: FAMOTIDINE 20 MG TAB PO SCH (08:43)
[2018-05-16] MEDS: SODIUM CHLORIDE 0.9% 1,000 ML IV SCH (09:42)
--- NOTE | 2018-05-16 12:32 | P.DS ---
Providers Date of admission: 05/14/18 07:17 Expected date of discharge: 05/16/18 Attending physician: Fatoumata Odell Consults: 05/14/18 07:21 Consult Physician Routine Consulting Provider: Sheri Pearson Consult Reason/Comments: intractable back pain, L1 compression fracture Do you want consulting provider notified?: Yes 05/15/18 11:07 Consult to Anesthesia Routine Consulting Provider: Anesthesia,Services Consult Reason/Comments: Open pain with right lower extremity radiculopathy Primary care physician: [facility] Course: Discharge diagnosis #1 L1 wedge vertebral fracture #2 intractable back pain #3 physical debility with difficulty standing up and walking #4 underlying history of hypertension well-controlled on lisinopril #5 underlying history of anxiety disorder #6 iron deficiency anemia. Hemoglobin 9.9 patient started on ferrous sulfate. Patient to follow-up with her PCP Patient was evaluated by orthopedic services. 2 LSO braces were attempted but were not able to be tolerated by patient. Per spinal surgery patient will be DC 'd on prednisone taper and no brace at this time. Patient to follow-up outpatient. Patient will continue tramadol and [place] for pain control. Patient has been cleared for discharge from spinal surgery. Hospital course Bisi Kessler is an 88-year-old female who presented to [facility] emergency room due to intractable back pain and physical debility with gait disturbance. She was evaluated in emergency room lumbar spine x-ray revealed evidence of a wedge fracture of L1 vertebrae. Patient was having difficulty standing up or walking, she was admitted to medical floor, neurosurgical consultation was requested. Patient stated that she had a fall about 1 month ago, she was having some mild back pain however she started having more severe pain about 1 week ago, she denies having any more recent falls. Patient developed difficulty getting up standing and walking due to severe pain. She was evaluated in emergency room and was started on pain medication and was admitted to medical floor. On 05/15/2018 patient was seen and examined on the medical floor she is alert and oriented 3 in no apparent distress she is complaining of back pain otherwise no complaints there is no fever or chills no headache or dizziness no chest pain no shortness of breath no cough no nausea or vomiting no abdominal pain no diarrhea and no urinary symptoms On 05/16/2018 patient maintained alert and oriented 3. Family at bedside. Patient states improvement with back pain. Patient especially she is eager to be DC'd home. Patient planned to be DC'd home daughter. Patient was evaluated with a spinal surgery. LSO braces were attempted but were not able to be tolerated by patient. Per spinal surgery patient will be DC'd on prednisone tapering no brace at this time. Patient to follow-up outpatient. Patient denies shortness breath. Patient denies nausea vomiting or diarrhea. Patient denies any urinary burning or frequency I performed an examination of the patient and discussed their management with the Nurse Practitioner. I have reviewed the Nurse Practitioner's notes and agree with the documented findings and plan of care Patient Condition at Discharge: Stable Plan - Discharge Summary Discharge Rx Participant: No New Discharge Prescriptions: New predniSONE See Taper PO DIRECTED #24 tab No Action traMADol HCL [Ultram] 50 mg PO QID Cholecalciferol [Vitamin D3] 1,000 unit PO DAILY Lisinopril [Zestril] 10 mg PO DAILY Calcium Carbonate [Calcium] 600 mg PO DAILY Vit C/E/Zn/Coppr/Lutein/Zeaxan [Preservision Areds 2 Softgel] 1 cap PO BID Timolol 0.5% Ophth Soln [Timoptic 0.5% Ophth Soln] 1 drop LEFT EYE DAILY Multivitamins, Thera [Multivitamin (formulary)] 1 tab PO DAILY oxyCODONE-APAP 7.5-325MG [Percocet 7.5-325 mg] 1 tab PO Q8H PRN PRN Reason: Pain ALPRAZolam [Xanax] 0.25 mg PO BID PRN PRN Reason: Anxiety Discharge Medication List Calcium Carbonate [Calcium] 600 mg PO DAILY 08/13/16 [History] Cholecalciferol [Vitamin D3] 1,000 unit PO DAILY 08/13/16 [History] Lisinopril [Zestril] 10 mg PO DAILY 08/13/16 [History] traMADol HCL [Ultram] 50 mg PO QID 08/13/16 [History] Multivitamins, Thera [Multivitamin (formulary)] 1 tab PO DAILY 04/29/18 [History ] Timolol 0.5% Ophth Soln [Timoptic 0.5% Ophth Soln] 1 drop LEFT EYE DAILY [History] Vit C/E/Zn/Coppr/Lutein/Zeaxan [Preservision Areds 2 Softgel] 1 cap PO BID 04/29 [History] ALPRAZolam [Xanax] 0.25 mg PO BID PRN 05/14/18 [History] oxyCODONE-APAP 7.5-325MG [Percocet 7.5-325 mg] 1 tab PO Q8H PRN 05/14/18 [ History] predniSONE See Taper PO DIRECTED #24 tab 05/16/18 [Rx] Follow up Appointment(s)/Referral(s): Tawnya Dale DO [Primary Care Provider] - 1-2 days Damon Miller PAC [PHYSICIAN [employer]ENDING [employer]OR] - 2 Weeks (Patient may follow-up with Damon Miller PA-C or Dr. Anthony Pearson at [facility] in 2-3 weeks following discharge. ) Activity/Diet/Wound Care/Special Instructions: 1. Patient should avoid excessive bending, twisting, and lifting; no lifting greater than 10 pounds 2. Take medications as prescribed
--- NOTE | 2018-05-16 15:47 | P.PN ---
Progress Note - Text Progress Note Date: 05/16/18 Patient is a pleasant 88-year-old female who is seen and examined at bedside for follow-up evaluation in regards to L1 compression fracture and low back pain. Since being seen and examined yesterday, patient does not feel her pain has significantly improved but states her pain is currently controlled at the bedside after receiving pain medication this morning. She states her symptoms may be exacerbated for no apparent reason are quite severe and significant. She denies lower extremity weakness or radiculopathy currently. She previously experience some right lower extremity radiculopathy. When her pain is severe she has pain in the lumbar spine that radiates laterally towards the hips bilaterally. Prescription for a brace was prescribed but she states she has been unable to wear either brace that was fitted as any pressure to her spine exacerbates her symptoms. She has been prescribed a steroid IV during her admission. She feels this may have provided some improvement of her symptoms. She was seen and examined yesterday by pain management who discussed the possibility of injections. At that time she declined to undergo injections. She states at the bedside again today she does not wish to go through injections. It has been discussed the possibility of discharge to a rehabilitation facility. She states she does not wish to be discharged to a rehabilitation facility and she plans on leaving the hospital today. She states she feels better home in her own setting. We discussed her ability to manage her pain at home and she does not seem to be concerned with this in outpatient setting. He has been able to adequately to the restroom. Physical exam: Patient is awake, alert, and oriented 3 Vital signs stable Good chest excursion with deep inspiration and expiration Abdomen soft nontender Examination of lumbar spine reveals skin is intact with no abrasions, serrations , or bruises; no erythema, purulence or signs of infection Dorsiflexion, plantarflexion, and extensor hallucis longus positive sustained bilaterally Patient is able to lift legs independently off the bed without significant difficulty Straight leg test negative bilateral lower extremities No signs or symptoms of DVT; no calf pain No pain with internal and external rotation of the hips bilaterally Neurovascularly intact Assessment: L1 compression fracture deformity Low back pain Lumbar significant degenerative disc disease and spondylosis Plan: 1. Patient does have evidence of L1 compression fracture deformity. She has had significant pain at her lower lumbar spine. She has been unable to tolerate bracing for her compression fracture deformity. She has had some improvement of her symptoms with pain medication and steroid medication during her admission. It was discussed the possibility of discharge to rehabilitation facility. Patient declines this today and states she would like to be discharged home today. We did discuss we will plan for a prescription of a steroid taper at the time of discharge. Patient feels this is a good plan of care and will plan to take this medication as prescribed until completion. She will be given a prescription for a 12 day 10 mg prednisone taper. She declines further bracing options due to being unable to tolerate the braces that were tried for her. Due to her L1 fracture, she should avoid excessive bending, twisting, lifting; no lifting greater than 10 pounds. From an orthopedic spine standpoint, she is stable for discharge to a rehabilitation facility or home if medicine feels patient is stable enough to be discharged home. Following discharge, we'll plan outpatient follow-up in approximately 2-3 weeks in the outpatient setting for further evaluation. 2. Patient will continue to be seen and examined by medicine 3. Patient has been discussed in detail with Dr. Anthony Pearson and he agrees with this plan
[2018-05-16] MEDS ORDERED: FERROUS SULFATE 325 MG TAB PO SCH (21:00)
== END 2018-05-16 14:35 | disposition home or self-care (01) ==
LOC: EC 04:21 → 4SSUR 07:17
PROVIDERS: ADMIT Internal Medicine; ATTEND Internal Medicine
DX: S32.019A Unspecified fracture of first lumbar vertebra, initial encounter for closed fracture (principal); F17.200 Nicotine dependence, unspecified, uncomplicated; F41.9 Anxiety disorder, unspecified; I10 Essential (primary) hypertension; M41.9 Scoliosis, unspecified; M47.9 Spondylosis, unspecified; R53.81 Other malaise; R26.9 Unspecified abnormalities of gait and mobility; M48.061 Spinal stenosis, lumbar region without neurogenic claudication; M51.16 Intervertebral disc disorders with radiculopathy, lumbar region; M81.0 Age-related osteoporosis without current pathological fracture; Z79.899 Other long term (current) drug therapy; Z85.42 Personal history of malignant neoplasm of other parts of uterus; Z90.710 Acquired absence of both cervix and uterus; Z91.81 History of falling; R29.6 Repeated falls; Z79.891 Long term (current) use of opiate analgesic; Z88.6 Allergy status to analgesic agent
CPT/HCPCS: 96376 ×2; 96372 ×4; 96374; 96375; 99285; 80053; 85025; G0378 ×3; J2270; J2930 ×3; J1650 ×3; J1170 ×3

== ENCOUNTER 2018-06-19 13:41 | Inpatient (IN) | payer MEDICARE, OTHER ==
[2018-06-19] MEDS ORDERED: DOCUSATE 283 MG/5 ML ENEMA RECTAL STA (14:40)
--- NOTE | 2018-06-19 15:00 | ED ---
Abdominal Pain HPI - General Chief Complaint: Abdominal Pain Stated Complaint: Constipated Time Seen by Provider: 06/19/18 14:11 Source: patient, RN notes reviewed, old records reviewed Mode of arrival: ambulatory Limitations: no limitations - History of Present Illness Initial Comments: 88 year old female presents today with complaints of constipation. Patient's not had a bowel movement in the past 6 days. Patient has had a history of lumbar spine fracture and is currently on multiple pain medications. Patient states that she's also feels like she has urinary retention. Reports she had a small amount of urine leakage earlier today. Patient's daughter reports she's had multiple stool softeners and attempted to disimpact Patient today but she is unable to tolerate this. Patient states that she's had no vomiting episodes. - Related Data Home Medications Medication Instructions Recorded Confirmed Calcium Carbonate [Calcium] 600 mg PO DAILY 08/13/16 05/14/18 Cholecalciferol [Vitamin D3] 1,000 unit PO DAILY 08/13/16 05/14/18 Lisinopril [Zestril] 10 mg PO DAILY 08/13/16 05/14/18 traMADol HCL [Ultram] 50 mg PO QID 08/13/16 05/14/18 Multivitamins, Thera [Multivitamin 1 tab PO DAILY 04/29/18 05/14/18 (formulary)] Timolol 0.5% Ophth Soln [Timoptic 1 drop LEFT EYE DAILY 04/29/18 05/14/18 0.5% Ophth Soln] Vit C/E/Zn/Coppr/Lutein/Zeaxan 1 cap PO BID 04/29/18 05/14/18 [Preservision Areds 2 Softgel] ALPRAZolam [Xanax] 0.25 mg PO BID PRN 05/14/18 05/14/18 Previous Rx's Medication Instructions Recorded Ferrous Sulfate [Iron (65 MG 325 mg PO BID 30 Days #60 tab 05/16/18 Elemental)] HYDROcodone/APAP 5-325MG [[place] 1 each PO Q6HR PRN 3 Days #12 tab 05/16/18 5-325] predniSONE See Taper PO DIRECTED #24 tab 05/16/18 Allergies Allergy/AdvReac Type Severity Reaction Status Date / Time aspirin AdvReac Nausea & Verified 05/14/18 10:57 Vomiting Review of Systems ROS Statement: Those systems with pertinent positive or pertinent negative responses have been documented in the HPI. ROS Other: All systems not noted in ROS Statement are negative. Past Medical History Past Medical History: Cancer, Hypertension Additional Past Medical History / Comment(s): Scoliosis; Osteoporosis; Uterine cancer (1970s) History of Any Multi-Drug Resistant Organisms: None Reported Past Surgical History: Cholecystectomy, Hysterectomy Additional Past Surgical History / Comment(s): Lap Chad Past Psychological History: Anxiety Smoking Status: Current every day smoker Past Alcohol Use History: None Reported Past Drug Use History: None Reported General Exam - General Exam Comments Initial Comments: This is a very frail 88-year-old female. Alert and oriented 3. Limitations: no limitations General appearance: alert, in no apparent distress Head exam: Present: atraumatic, normocephalic, normal inspection Eye exam: Present: normal appearance, PERRL, EOMI. Absent: scleral icterus, conjunctival injection, periorbital swelling ENT exam: Present: normal exam, mucous membranes moist Neck exam: Present: normal inspection. Absent: tenderness, meningismus, lymphadenopathy Respiratory exam: Present: normal lung sounds bilaterally. Absent: respiratory distress, wheezes, rales, rhonchi, stridor Cardiovascular Exam: Present: regular rate, normal rhythm, normal heart sounds. Absent: systolic murmur, diastolic murmur, rubs, gallop, clicks GI/Abdominal exam: Present: soft, distended, tenderness (2. Suprapubic distended area and tenderness.), normal bowel sounds. Absent: guarding, rebound, rigid Rectal exam: Present: fecal impaction (Patient has a very large fecal impactio n.). Absent: normal inspection, normal rectal tone External exam: Present: normal external exam Extremities exam: Present: normal inspection, full ROM, normal capillary refill. Absent: tenderness, pedal edema, joint swelling, calf tenderness Back exam: Present: normal inspection Neurological exam: Present: alert, oriented X3, CN II-XII intact Psychiatric exam: Present: normal affect, normal mood Skin exam: Present: warm, dry, intact, normal color. Absent: rash Course Vital Signs 06/19/18 14:06 Temperature 97.9 F Pulse Rate 105 H Respiratory 16 Rate Blood Pressure 124/65 O2 Sat by Pulse 97 Oximetry Medical Decision Making - Medical Decision Making Patient is an 88-year-old female presents emergency department with complaints of 60s constipation. She subsequently developed urinary retention due to the large fecal impaction. Patient had over 1 L of urine within the bladder. A Boykin catheter was initiated. Urine sample was obtained and show significant infection. Patient's family reports she's been on multiple anabiotic C the past 2 months for UTIs. She last completed an antibiotic 3 weeks ago of unknown ant ibiotic at this time. Patient was given a therapeutic enema and milk and molasses enema and I digitally disimpacted the Patient. Patient was very weak and fatigued while trying to have a bowel movement. She had a few near vagal episodes. At this point Patient started on IV fluids and given antibiotics for urinary tract infection. She is very weak and frail. Urine culture is pending. Patient was given a gram of Rocephin at this time. I discussed the case is Dr. Gomes Will discuss case with Dr. Dumas. [place] the Patient for urinary retention, frequent urinary tract infections and weakness. - Lab Data Lab Results 06/19/18 Range/Units 15:30 Urine Color Yellow Urine Appearance Cloudy H (Clear) Urine pH 6.5 (5.0-8.0) Ur Specific [place] 1.010 (1.001-1.035) Urine Protein 1+ H (Negative) Urine Glucose (UA) Negative (Negative) Urine Ketones Negative (Negative) Urine Blood Small H (Negative) Urine Nitrite Negative (Negative) Urine Bilirubin Negative (Negative) Urine Urobilinogen 2.0 (<2.0) mg/dL Ur Leukocyte Esterase Large H (Negative) Urine RBC 74 H (0-5) /hpf Urine WBC >182 H (0-5) /hpf Urine WBC Clumps Rare H (None) /hpf Urine Mucus Rare H (None) /hpf - Radiology Data Radiology results: report reviewed Nonacute abdomen. Appears to be multiple gallstones includes cholecystectomy. Patient's correlation for surgical history as needed. Disposition Clinical Impression: UTI (urinary tract infection), Urinary retention, Fecal impaction, Weakness, Chronic back pain Disposition: ADMITTED IP TO THIS HOSP Condition: Stable Is patient prescribed a controlled substance at d/c from ED?: No Referrals: Tawnya Dale DO [Primary Care Provider] - 1-2 days Time of Disposition: 17:54
--- NOTE | 2018-06-19 15:32 | XR ---
EXAMINATION TYPE: XR KUB DATE OF EXAM: 06/19/2018 COMPARISON: 08/05/2012 HISTORY: Back pain TECHNIQUE: Single view FINDINGS: There is no sign of intestinal obstruction or pneumoperitoneum. Fecal pattern is normal. Th ere are numerous calcified gallstones. Lung bases are clear. There is atherosclerotic vascular calcif ication. There are clips in the right upper quadrant also. IMPRESSION: Nonacute abdomen. There appears to be multiple gallstones and clips from cholecystectomy. Correlation with the surgical history is needed.
[2018-06-19 15:57] LABS: Appearance,Urine Cloudy (Clear); Bilirubin,Urine Negative (Negative); Blood,Urine Small (Negative); Color,Urine Yellow; Glucose,Urine (UA) Negative (Negative); Ketones,Urine Negative (Negative); Leukocyte Esterase,Urine Large (Negative); Mucus,Urine Rare /hpf; Nitrite,Urine Negative (Negative); PH, Urine 6.5 (5.0-8.0); Protein,Urine 1+ (Negative); RBC,Urine 74 /hpf (0-5)
[2018-06-19] MEDS ORDERED: cefTRIAXone IN SWFI 1,000 MG/10 ML SYRINGE IVP STA (16:07)
[2018-06-19] MEDS ORDERED: SODIUM CHLORIDE 0.9% 1,000 ML IV ONE (17:33)
[2018-06-19] MEDS ORDERED: IBUPROFEN 400 MG TAB PO PRN (17:55)
[2018-06-19] MEDS ORDERED: ACETAMINOPHEN TAB 325 MG TAB PO PRN (17:55)
[2018-06-19] MEDS ORDERED: ONDANSETRON 4 MG/2 ML VIAL IVP PRN (17:55)
[2018-06-19] MEDS ORDERED: NALOXONE 0.4 MG/ML 1 ML VIAL IV PRN (17:55)
[2018-06-19] MEDS ORDERED: ALPRAZolam 0.25 MG TAB PO PRN (17:56)
[2018-06-19] MEDS ORDERED: traMADol 50 MG TAB PO SCH (18:00)
[2018-06-19 18:03] LABS: Basophils # (A) 0.1 k/uL (0-0.2); Basophils % (A) 0 %; Eosinophils # (A) 0.2 k/uL (0-0.7); Eosinophils % (A) 1 %; HCT 36.2 % (34.0-46.0); HGB 11.3 gm/dL (11.4-16.0); Lymphocytes # (A) 1.4 k/uL (1.0-4.8); Lymphocytes % (A) 8 %; MCH 27.6 pg (25.0-35.0); MCHC 31.3 g/dL (31.0-37.0); MCV 88.2 fL (80.0-100.0); Mean Platelet Volume 7.5; Monocytes # (A) 1.3 k/uL (0-1.0); Monocytes % (A) 8 %; Neutrophils # (A) 13.8 k/uL (1.3-7.7); Neutrophils % (A) 82 %; Platelet Count 395 k/uL (150-450); RBC 4.11 m/uL (3.80-5.40); RDW 14.5 % (11.5-15.5); WBC 16.8 k/uL (3.8-10.6)
[2018-06-19 18:12] LABS: Albumin 3.8 g/dL (3.5-5.0); Calcium 10.2 mg/dL (8.4-10.2); Potassium 4.7 mmol/L (3.5-5.1); Total Bilirubin 0.4 mg/dL (0.2-1.3); Total Protein 6.6 g/dL (6.3-8.2)
[2018-06-19] MEDS: FERROUS SULFATE 325 MG TAB PO SCH (20:37)
[2018-06-19] MEDS: DESIPRAMINE 25 MG TAB PO SCH (20:37)
[2018-06-19] MEDS: traMADol 50 MG TAB PO PRN (20:37)
[2018-06-19] MEDS: SODIUM CHLORIDE 0.9% 1,000 ML IV SCH (20:40)
[2018-06-19] MEDS ORDERED: NON-FORMULARY DRUG (Vit C/E/Zn/Coppr/Lutein/Zeaxan [Preservision Areds 2 Softgel] 1 CAP) PO SCH (21:00)
[2018-06-20] MEDS: SODIUM CHLORIDE 0.9% 1,000 ML IV SCH ×3 (06:21→23:25)
[2018-06-20] MEDS: CALCIUM CARBONATE 500 MG CHEWABLE PO SCH (06:47)
[2018-06-20] MEDS: TIMOLOL 0.5% OPHTH DROPS 5 ML BTL LEFT EYE SCH (06:47)
[2018-06-20] MEDS: FERROUS SULFATE 325 MG TAB PO SCH ×2 (06:47→20:35)
[2018-06-20] MEDS: LISINOPRIL 10 MG TAB PO SCH (06:47)
[2018-06-20] MEDS: CHOLECALCIFEROL 1,000 UNIT TAB PO SCH (06:47)
[2018-06-20] MEDS: CALCITONIN 200 USP/1 NASAL SPRAY 3.7ML BTL NASAL SCH (06:48)
[2018-06-20] MEDS: DOCUSATE 100 MG CAP PO SCH ×2 (09:19→20:35)
[2018-06-20 09:22] LABS: Basophils % (A) 1 %; Eosinophils # (A) 0.2 k/uL (0-0.7); Eosinophils % (A) 3 %; HCT 32.7 % (34.0-46.0); HGB 10.2 gm/dL (11.4-16.0); Hypochromasia Slight; Lymphocytes # (A) 0.7 k/uL (1.0-4.8); Lymphocytes % (A) 8 %; MCH 27.8 pg (25.0-35.0); MCV 89.4 fL (80.0-100.0); Mean Platelet Volume 7.6; Monocytes # (A) 0.5 k/uL (0-1.0); Monocytes % (A) 6 %; Neutrophils # (A) 6.9 k/uL (1.3-7.7); Neutrophils % (A) 82 %; Platelet Count 336 k/uL (150-450); RBC 3.66 m/uL (3.80-5.40); RDW 14.6 % (11.5-15.5); WBC 8.5 k/uL (3.8-10.6)
[2018-06-20 09:34] LABS: ALT 38 U/L (9-52); AST 38 U/L (14-36); Albumin 3.4 g/dL (3.5-5.0); Alkaline Phosphatase 112 U/L (38-126); Anion Gap 6 mmol/L; Blood Urea Nitrogen 14 mg/dL (7-17); Calcium 9.2 mg/dL (8.4-10.2); Carbon Dioxide 28 mmol/L (22-30); Chloride 104 mmol/L (98-107); Glucose 145 mg/dL (74-99); Potassium 4.5 mmol/L (3.5-5.1); Sodium 138 mmol/L (137-145); Total Bilirubin 0.3 mg/dL (0.2-1.3)
--- NOTE | 2018-06-20 11:00 | P.HPIM ---
History of Present Illness H&P Date: 06/20/18 This is a 88-year-old female patient of Dr. Dale. Patient presented to the emergency room with complaints of constipation, urinary retention and weakness. Patient was recently admitted on 05/15/2018 in which she had of L1 wedged vertebral fracture. At that time patient was discharged home with TLSO brace and prednisone taper. Per patient's family patient has been doing well at home. Patient's symptoms started 2 days ago. Prior to admission patient had not had bowel movement for 6 days. Patient was disimpacted in the ER. Patient reports significant relief. Abdominal x-ray completed showing nonacute abdomen. There appears to be multiple gallstones and clips from cholecystectomy. Correlation with surgical history is needed. Patient has a past medical history of uterine cancer, hypertension, scoliosis, osteoporosis, cholecystectomy and anxiety. Patient was found to have urinary tract infection. Initial white blood cell elevated at 16.8. Patient started on Rocephin for IV antibiotics urine culture ordered. Boykin catheter is in place. Colace added. At this time patient denies chest pain or shortness of breath. Patient denies nausea vomiting or diarrhea. Patient denies any urinary burning or frequency Review of Systems Please refer to HPI otherwise unremarkable Past Medical History Past Medical History: Cancer, Hypertension Additional Past Medical History / Comment(s): Scoliosis; Osteoporosis; Uterine cancer (1970s), lumbar fracture History of Any Multi-Drug Resistant Organisms: None Reported Past Surgical History: Cholecystectomy, Hysterectomy Additional Past Surgical History / Comment(s): Lap Chad Past Anesthesia/Blood Transfusion Reactions: No Reported Reaction Past Psychological History: Anxiety Smoking Status: Current some day smoker Past Alcohol Use History: None Reported Past Drug Use History: None Reported - Past Family History Mother Family Medical History: Cancer Father Family Medical History: Diabetes Mellitus Medications and Allergies Home Medications Medication Instructions Recorded Confirmed Type RX: Calcium Carbonate [Calcium] 600 mg PO DAILY 08/13/16 06/19/18 History RX: Cholecalciferol [Vitamin D3] 1,000 unit PO DAILY 08/13/16 06/19/18 History RX: Lisinopril [Zestril] 10 mg PO DAILY 08/13/16 06/19/18 History RX: traMADol HCL [Ultram] 50 mg PO QID 08/13/16 06/19/18 History RX: Multivitamins, Thera 1 tab PO DAILY 04/29/18 06/19/18 History [Multivitamin (formulary)] RX: Timolol 0.5% Ophth Soln 1 drop LEFT EYE DAILY 04/29/18 06/19/18 History [Timoptic 0.5% Ophth Soln] RX: Vit C/E/Zn/Coppr/Lutein/Zeaxan 1 cap PO BID 04/29/18 06/19/18 History [Preservision Areds 2 Softgel] RX: ALPRAZolam [Xanax] 0.25 mg PO BID PRN 05/14/18 06/19/18 History RX: Ferrous Sulfate [Iron (65 MG 325 mg PO BID 30 Days #60 tab 05/16/18 06/19/18 Rx Elemental)] RX: Calcitonin Nasal [Fortical 1 spray EA NOSTRIL DAILY 06/19/18 06/19/18 History (Miacalcin)] RX: Desipramine [Norpramin] 25 mg PO HS 06/19/18 06/19/18 History rOPINIRole HCL [Requip] 0.25 mg PO HS 06/19/18 06/19/18 History Allergies Allergy/AdvReac Type Severity Reaction Status Date / Time aspirin AdvReac Nausea & Verified 06/19/18 17:53 Vomiting Physical Exam Vitals: Vital Signs Temp Pulse Pulse Resp BP BP BP 06/20/18 08:56 98.1 F 82 16 143/48 06/19/18 23:47 98.4 F 91 16 158/78 06/19/18 20:21 97.7 F 92 16 176/79 06/19/18 20:00 78 18 170/88 06/19/18 17:55 135/88 06/19/18 14:06 97.9 F 105 H 16 124/65 Pulse Ox 06/20/18 08:56 97 06/19/18 23:47 99 06/19/18 20:21 98 06/19/18 20:00 98 06/19/18 17:55 06/19/18 14:06 97 Intake and Output 06/19/18 06/20/18 06/20/18 22:59 06:59 14:59 Intake Total 200 Output Total 900 1000 Balance -700 -1000 Intake: Intake, IV Titration 200 Amount Sodium Chloride 0.9% 1, 200 000 ml @ 100 mls/hr IV . Q10H [facility] Rx#:[id number] Output: Urine 900 1000 Other: Voiding Method Indwelling Catheter Indwelling Catheter Head normocephalic Neck supple Lungs clear to auscultation bilaterally no wheezing or crackles Heart regular rate and rhythm S1-S2, no rub or gallop Abdomen is soft nontender nondistended positive bowel sounds no hepatosplenomegaly Extremities no edema Neuro alert and orientated to 3 Results CBC & Chem 7: 06/20/18 08:36 06/20/18 08:36 Labs: Abnormal Lab Results - Last 24 Hours (Table) 06/19/18 06/19/18 06/19/18 Range/Units 15:30 17:30 17:30 WBC 16.8 H (3.8-10.6) k/uL RBC (3.80-5.40) m/uL Hgb 11.3 L (11.4-16.0) gm/dL Hct (34.0-46.0) % Neutrophils # 13.8 H (1.3-7.7) k/uL Lymphocytes # (1.0-4.8) k/uL Monocytes # 1.3 H (0-1.0) k/uL BUN 23 H (7-17) mg/dL Glucose 113 H (74-99) mg/dL AST 50 H (14-36) U/L Alkaline Phosphatase 142 H (38-126) U/L Total Protein (6.3-8.2) g/dL Albumin (3.5-5.0) g/dL Urine Appearance Cloudy H (Clear) Urine Protein 1+ H (Negative) Urine Blood Small H (Negative) Ur Leukocyte Esterase Large H (Negative) Urine RBC 74 H (0-5) /hpf Urine WBC >182 H (0-5) /hpf Urine WBC Clumps Rare H (None) /hpf Urine Mucus Rare H (None) /hpf 06/20/18 06/20/18 Range/Units 08:36 08:36 WBC (3.8-10.6) k/uL RBC 3.66 L (3.80-5.40) m/uL Hgb 10.2 L (11.4-16.0) gm/dL Hct 32.7 L (34.0-46.0) % Neutrophils # (1.3-7.7) k/uL Lymphocytes # 0.7 L (1.0-4.8) k/uL Monocytes # (0-1.0) k/uL BUN (7-17) mg/dL Glucose 145 H (74-99) mg/dL AST 38 H (14-36) U/L Alkaline Phosphatase (38-126) U/L Total Protein 6.0 L (6.3-8.2) g/dL Albumin 3.4 L (3.5-5.0) g/dL Urine Appearance (Clear) Urine Protein (Negative) Urine Blood (Negative) Ur Leukocyte Esterase (Negative) Urine RBC (0-5) /hpf Urine WBC (0-5) /hpf Urine WBC Clumps (None) /hpf Urine Mucus (None) /hpf Microbiology - Last 24 Hours (Table) 06/19/18 15:30 Urine Culture - Preliminary Urine,Voided Thrombosis Risk Factor Assmnt - Choose All That Apply Any of the Below Risk Factors Present?: No Other Risk Factors: Yes Each Risk Factor Represents 3 Points: Age 75 years or older Thrombosis Risk Factor Assessment Total Risk Factor Score: 3 Thrombosis Risk Factor Assessment Level: Moderate Risk Assessment and Plan Assessment: 1. Urinary tract infection. Urine culture ordered. started on Rocephin 2. Constipation with fecal impaction. KUB x-ray completed showing nonacute abdomen. There appears to be multiple gallstones and clips from cholecystectomy correlation with the surgical history needed. Patient started on Colace 3. Urinary retention likely due to constipation. Boykin catheter is in place. Boykin catheter to be removed this afternoon to its assess for retention. 4. L1 wedge vertebral fracture chronic back pain. Patient has TSLO brace at home. Patient takes tramadol at home 5. Underlying history of anxiety disorder 6. Iron deficiency anemia patient maintained on ferrous sulfate 7. History of cholecystectomy 8. History of uterine cancer 9. History of essential hypertension DVT prophylaxis Lovenox. GI prophylaxis Protonix Time with Patient: Greater than 30 (Greater than 60% of the total time spent in counseling and coordination of care. I performed an examination of the patient and discussed their management with the Nurse Practitioner. I have reviewed the Nurse Practitioner's notes and agree with the documented findings and plan of care)
[2018-06-20] MEDS: traMADol 50 MG TAB PO PRN ×3 (13:48→23:22)
[2018-06-20] MEDS: MULTIVITAMINS, THERA 1 EACH TAB PO SCH (13:48)
[2018-06-20] MEDS: TAMSULOSIN 0.4 MG CAP.ER.24H PO SCH ×2 (13:50→17:21)
[2018-06-20] MEDS: oxyCODONE-APAP 7.5-325MG 1 EACH TAB PO PRN (18:21)
[2018-06-20] MEDS: ALPRAZolam 0.25 MG TAB PO PRN ×2 (18:21→23:22)
[2018-06-20] MEDS ORDERED: TAMSULOSIN 0.4 MG CAP.ER.24H PO SCH (18:30)
--- NOTE | 2018-06-20 19:31 | P.GSCN ---
History of Present Illness Consult date: 06/20/18 Reason for Consult: Urinary retention Requesting physician: Fatoumata Odell History of present illness: The patient is an 88-year-old white female evaluated by Dr. Briones in 2017 for recurrent UTIs. Cystoscopy at that time showed multiple tiny bladder calculi, with diffuse cystitis cystica. The postvoid residual at that time was 206 mL. Examination at that time revealed a grade 3 cystocele, grade 3 rectocele. She was referred to gynecology, and she was fitted for a pessary which failed to work. She sustained an L1 wedge fracture and no May 2018, requiring analgesics. She is currently admitted with constipation and urinary retention. A Boykin catheter was placed in the emergency room, with return of approximately 1 L of urine. She has been disimpacted, and the Boykin catheter has been removed. Recent post void residuals have been approximately 400 mL. Review of Systems - Constitutional Denies chills, Denies fever - Gastrointestinal Reports constipation - Genitourinary Genitourinary: Reports difficulty voiding - Musculoskeletal Reports low back pain Past Medical History Past Medical History: Cancer, Hypertension Additional Past Medical History / Comment(s): Scoliosis; Osteoporosis; Uterine cancer (1970s), lumbar fracture History of Any Multi-Drug Resistant Organisms: None Reported Past Surgical History: Cholecystectomy, Hysterectomy Additional Past Surgical History / Comment(s): Lap Chad Past Anesthesia/Blood Transfusion Reactions: No Reported Reaction Past Psychological History: Anxiety Smoking Status: Current some day smoker Past Alcohol Use History: None Reported Past Drug Use History: None Reported - Past Family History Mother Family Medical History: Cancer Father Family Medical History: Diabetes Mellitus Medications and Allergies Home Medications Medication Instructions Recorded Confirmed Type Calcium Carbonate [Calcium] 600 mg PO DAILY 08/13/16 06/19/18 History Cholecalciferol [Vitamin D3] 1,000 unit PO DAILY 08/13/16 06/19/18 History Lisinopril [Zestril] 10 mg PO DAILY 08/13/16 06/19/18 History traMADol HCL [Ultram] 50 mg PO QID 08/13/16 06/19/18 History Multivitamins, Thera [Multivitamin 1 tab PO DAILY 04/29/18 06/19/18 History (formulary)] Timolol 0.5% Ophth Soln [Timoptic 1 drop LEFT EYE DAILY 04/29/18 06/19/18 History 0.5% Ophth Soln] Vit C/E/Zn/Coppr/Lutein/Zeaxan 1 cap PO BID 04/29/18 06/19/18 History [Preservision Areds 2 Softgel] ALPRAZolam [Xanax] 0.25 mg PO BID PRN 05/14/18 06/19/18 History Ferrous Sulfate [Iron (65 MG 325 mg PO BID 30 Days #60 tab 05/16/18 06/19/18 Rx Elemental)] Calcitonin Nasal [Fortical 1 spray EA NOSTRIL DAILY 06/19/18 06/19/18 History (Miacalcin)] Desipramine [Norpramin] 25 mg PO HS 06/19/18 06/19/18 History rOPINIRole HCL [Requip] 0.25 mg PO HS 06/19/18 06/19/18 History oxyCODONE-APAP 7.5-325MG [Percocet 1 tab PO Q8HR PRN 06/20/18 06/20/18 History 7.5-325 mg] Allergies Allergy/AdvReac Type Severity Reaction Status Date / Time aspirin AdvReac Nausea & Verified 06/19/18 17:53 Vomiting Surgical - Exam Vital Signs Temp Pulse Resp BP Pulse Ox 97.9 F 105 H 16 124/65 97 06/19/18 14:06 06/19/18 14:06 06/19/18 14:06 06/19/18 14:06 06/19/18 14:06 - General well developed, well nourished, no distress - Respiratory normal respiratory effort - Abdomen Abdomen: soft, non tender, no guarding, no rigid, no rebound - Psychiatric oriented to time, oriented to person, oriented to place, speech is normal, memory intact Results - Labs 06/20/18 08:36 06/20/18 08:36 Abnormal Lab Results - Last 24 Hours (Table) 06/19/18 06/19/18 06/20/18 Range/Units 17:30 17:30 08:36 WBC 16.8 H (3.8-10.6) k/uL RBC 3.66 L (3.80-5.40) m/uL Hgb 11.3 L 10.2 L (11.4-16.0) gm/dL Hct 32.7 L (34.0-46.0) % Neutrophils # 13.8 H (1.3-7.7) k/uL Lymphocytes # 0.7 L (1.0-4.8) k/uL Monocytes # 1.3 H (0-1.0) k/uL BUN 23 H (7-17) mg/dL Glucose 113 H (74-99) mg/dL AST 50 H (14-36) U/L Alkaline Phosphatase 142 H (38-126) U/L Total Protein (6.3-8.2) g/dL Albumin (3.5-5.0) g/dL 06/20/18 Range/Units 08:36 WBC (3.8-10.6) k/uL RBC (3.80-5.40) m/uL Hgb (11.4-16.0) gm/dL Hct (34.0-46.0) % Neutrophils # (1.3-7.7) k/uL Lymphocytes # (1.0-4.8) k/uL Monocytes # (0-1.0) k/uL BUN (7-17) mg/dL Glucose 145 H (74-99) mg/dL AST 38 H (14-36) U/L Alkaline Phosphatase (38-126) U/L Total Protein 6.0 L (6.3-8.2) g/dL Albumin 3.4 L (3.5-5.0) g/dL Microbiology - Last 24 Hours (Table) 06/19/18 15:30 Urine Culture - Preliminary Urine,Voided Diabetes panel 06/19/18 06/20/18 Range/Units 17:30 08:36 Sodium 138 138 (137-145) mmol/L Potassium 4.7 4.5 (3.5-5.1) mmol/L Chloride 101 104 (98-107) mmol/L Carbon Dioxide 27 28 (22-30) mmol/L BUN 23 H 14 (7-17) mg/dL Creatinine 0.73 0.60 (0.52-1.04) mg/dL Glucose 113 H 145 H (74-99) mg/dL Calcium 10.2 9.2 (8.4-10.2) mg/dL AST 50 H 38 H (14-36) U/L ALT 46 38 (9-52) U/L Alkaline Phosphatase 142 H 112 (38-126) U/L Total Protein 6.6 6.0 L (6.3-8.2) g/dL Albumin 3.8 3.4 L (3.5-5.0) g/dL Calcium panel 06/19/18 06/20/18 Range/Units 17:30 08:36 Calcium 10.2 9.2 (8.4-10.2) mg/dL Albumin 3.8 3.4 L (3.5-5.0) g/dL Pituitary panel 06/19/18 06/20/18 Range/Units 17:30 08:36 Sodium 138 138 (137-145) mmol/L Potassium 4.7 4.5 (3.5-5.1) mmol/L Chloride 101 104 (98-107) mmol/L Carbon Dioxide 27 28 (22-30) mmol/L BUN 23 H 14 (7-17) mg/dL Creatinine 0.73 0.60 (0.52-1.04) mg/dL Glucose 113 H 145 H (74-99) mg/dL Calcium 10.2 9.2 (8.4-10.2) mg/dL Adrenal panel 06/19/18 06/20/18 Range/Units 17:30 08:36 Sodium 138 138 (137-145) mmol/L Potassium 4.7 4.5 (3.5-5.1) mmol/L Chloride 101 104 (98-107) mmol/L Carbon Dioxide 27 28 (22-30) mmol/L BUN 23 H 14 (7-17) mg/dL Creatinine 0.73 0.60 (0.52-1.04) mg/dL Glucose 113 H 145 H (74-99) mg/dL Calcium 10.2 9.2 (8.4-10.2) mg/dL Total Bilirubin 0.4 0.3 (0.2-1.3) mg/dL AST 50 H 38 H (14-36) U/L ALT 46 38 (9-52) U/L Alkaline Phosphatase 142 H 112 (38-126) U/L Total Protein 6.6 6.0 L (6.3-8.2) g/dL Albumin 3.8 3.4 L (3.5-5.0) g/dL Assessment and Plan (1) Urinary retention Current Visit: Yes Status: Acute Code(s): R33.9 - RETENTION OF URINE, UNSPECIFIED SNOMED Code(s): 978515689 Plan: The patient has a history of incomplete bladder emptying, likely due at least in part to her known pelvic prolapse. I suspect this has been exacerbated by her recent constipation. She has been disimpacted but continues to empty her bladder incompletely. I would suggest that her postvoid residuals continue to be monitored. If it failed to improve, she should be discharged home with a Boykin catheter and follow-up with Dr. Briones as an outpatient. Please notify me if I can be of any further assistance.
[2018-06-20] MEDS: DESIPRAMINE 25 MG TAB PO SCH (20:35)
[2018-06-21] MEDS: oxyCODONE-APAP 7.5-325MG 1 EACH TAB PO PRN (01:23)
[2018-06-21 07:29] VITALS: BP 133/57; PULSE 110; RESP 16; TEMP 97.4
[2018-06-21] MEDS: MULTIVITAMINS, THERA 1 EACH TAB PO SCH (07:30)
[2018-06-21] MEDS ORDERED: PANTOPRAZOLE 40 MG TABLET PO SCH (07:30)
[2018-06-21] MEDS: FERROUS SULFATE 325 MG TAB PO SCH (07:30)
[2018-06-21] MEDS: CHOLECALCIFEROL 1,000 UNIT TAB PO SCH (07:30)
[2018-06-21] MEDS: DOCUSATE 100 MG CAP PO SCH (07:30)
[2018-06-21] MEDS: LISINOPRIL 10 MG TAB PO SCH (07:30)
[2018-06-21] MEDS: CALCITONIN 200 USP/1 NASAL SPRAY 3.7ML BTL NASAL SCH (07:31)
[2018-06-21] MEDS: TIMOLOL 0.5% OPHTH DROPS 5 ML BTL LEFT EYE SCH (07:31)
[2018-06-21] MEDS: SODIUM CHLORIDE 0.9% 1,000 ML IV SCH (07:31)
[2018-06-21] MEDS: CALCIUM CARBONATE 500 MG CHEWABLE PO SCH (07:36)
--- NOTE | 2018-06-21 07:53 | US ---
EXAMINATION TYPE: US abdomen complete DATE OF EXAM: 06/21/2018 COMPARISON: CT & US CLINICAL HISTORY: possible gallstones. Patient originally stated only surgical history of hysterectom y. Nurse has surgical history of cholecystectomy EXAM MEASUREMENTS: Liver Length: 15.7 cm Gallbladder Wall: Surgically absent cm CBD: 1.0 cm Spleen: 9.4 cm Right Kidney: 11.9 x 6.5 x 6.7 cm Left Kidney: 9.1 x 3.5 x 3.3 cm Shadowing in the gallbladder fossa likely represents bowel rather than cholelithiasis although could be confirmed with CT. Pancreas: not visualized due to midline bowel gas Liver: wnl Gallbladder: Surgically absent CBD: Upper limits of normal for surgical absence of the gallbladder. Spleen: wnl Right Kidney: severe hydronephrosis with multiple stones in renal pelvis. Left Kidney: wnl Upper IVC: wnl Abd Aorta: bifurcation not visualized The liver is homogenous. The intrahepatic portion of the IVC and proximal abdominal aorta are within normal limits. Common bile duct is unremarkable. The spleen is unremarkable. Kidneys are symm etric and free of hydronephrosis. No renal lesions are seen. IMPRESSION: 1. The previously questioned gallstones relate to numerous obstructing right renal pelvic calculi gat hered together. This creates severe right hydronephrosis. No current cortical renal thinning is seen although the severe hydronephrosis was seen on the prior of 09/22/2016. 2. Gallbladder surgically absent and common bile duct is upper limits of normal size. 3. Nonvisualization of the increased due to overlying bowel gas. Abdominal aorta is also suboptimally visualized.
[2018-06-21 09:00] LABS: Basophils % (A) 0 %; Eosinophils # (A) 0.2 k/uL (0-0.7); Eosinophils % (A) 1 %; HCT 33.6 % (34.0-46.0); HGB 10.4 gm/dL (11.4-16.0); Hypochromasia Slight; Lymphocytes # (A) 0.9 k/uL (1.0-4.8); Lymphocytes % (A) 8 %; MCH 27.7 pg (25.0-35.0); MCHC 31.1 g/dL (31.0-37.0); Mean Platelet Volume 7.3; Monocytes % (A) 8 %; Neutrophils # (A) 9.8 k/uL (1.3-7.7); Neutrophils % (A) 82 %; Platelet Count 340 k/uL (150-450); RBC 3.78 m/uL (3.80-5.40); RDW 14.4 % (11.5-15.5)
[2018-06-21] MEDS ORDERED: ENOXAPARIN 40 MG/0.4 ML SYRINGE SQ SCH (09:00)
[2018-06-21 09:15] LABS: Albumin 3.3 g/dL (3.5-5.0); Calcium 9.2 mg/dL (8.4-10.2); Potassium 4.2 mmol/L (3.5-5.1); Total Bilirubin 0.3 mg/dL (0.2-1.3); Total Protein 6.1 g/dL (6.3-8.2)
--- NOTE | 2018-06-21 14:07 | P.DS ---
Providers Date of admission: 06/21/18 08:52 Expected date of discharge: 06/21/18 Attending physician: Fatoumata Odell Consults: 06/20/18 13:25 Consult Physician Routine Consulting Provider: Elton Cardoza Consult Reason/Comments: Urinary retention Do you want consulting provider notified?: Yes Primary care physician: Tawnya Dale [facility] Course: Discharge diagnosis 1. Urinary tract infection. started on Rocephin. Blood culture showing no growth. Patient will be DC'd on Ceftin for 5 more days 2. Constipation with fecal impaction. KUB x-ray completed showing nonacute abdomen. There appears to be multiple gallstones and clips from cholecystectomy correlation with the surgical history needed. Patient started on Colace 3. Urinary retention related to constipation and pelvic prolapse. Boykin catheter is in place. Boykin catheter to be removed this afternoon to its assess for retention. Abdominal ultrasound completed showing gallstones related to numerous obstructing right renal pelvic calculi catheter together. This creates severe right hydronephrosis. No current cortical renal thinning is seen although the severe hydronephrosis was seen on prior exam 09/22/2016. Nursing staff discussed place findings with Dr. cardoza per Urology services, no further workup in regards to these findings. Patient did have Boykin catheter reinserted last night due to increased residuals. Per urology service is patient to be discharged with Boykin catheter and follow-up with Dr. Briones as outpatient in one week 4. L1 wedge vertebral fracture chronic back pain. Patient has TSLO brace at home. 5. Underlying history of anxiety disorder 6. Iron deficiency anemia patient maintained on ferrous sulfate 7. History of cholecystectomy 8. History of uterine cancer 9. History of essential hypertension 10. Tachycardia with hypertension. EKG completed showing sinus tachycardia with a heart rate of 101. Patient's blood pressure elevated throughout night. Will start patient on Lopressor 25 mg twice a day and patient to follow-up with her PCP. Hospital course This is a 88-year-old female patient of Dr. Dale. Patient presented to the emergency room with complaints of constipation, urinary retention and weakness. Patient was recently admitted on 05/15/2018 in which she had of L1 wedged vertebral fracture. At that time patient was discharged home with TLSO brace and prednisone taper. Per patient's family patient has been doing well at home. Patient's symptoms started 2 days ago. Prior to admission patient had not had bowel movement for 6 days. Patient was disimpacted in the ER. Patient reports significant relief. Abdominal x-ray completed showing nonacute abdomen. There appears to be multiple gallstones and clips from cholecystectomy. Correlation with surgical history is needed. Patient has a past medical history of uterine cancer, hypertension, scoliosis, osteoporosis, cholecystectomy and anxiety. Patient was found to have urinary tract infection. Initial white blood cell elevated at 16.8. Patient started on Rocephin for IV antibiotics urine culture ordered. Boykin catheter is in place. Colace added. At this time patient denies chest pain or shortness of breath. Patient denies nausea vomiting or diarrhea. Patient denies any urinary burning or frequency On 06/21/2018 patient is currently resting comfortably in bed. Patient is very eager to go home. Patient expresses she does not like to be hospital. Patient did have Boykin catheter placed last night due to increased residuals. Patient was seen by urology services. Patient to be discharged home with Boykin catheter in place and follow-up outpatient with Dr. Briones. Per nursing staff findings of abdominal ultrasound were discussed with urology services no further workup at this time. EKG also completed showing sinus tachycardia. Patient was started on Lopressor 25 mg twice a day. Patient to follow-up closely with PCP and urology services. Patient will be discharged on Ceftin for 5 more days for urinary tract infection. Patient also started on Colace for constipation. At this time patient denies chest pain or shortness breath. Patient denies nausea vomiting or diarrhea. Patient denies any urinary burning or frequency. I performed an examination of the patient and discussed their management with the Nurse Practitioner. I have reviewed the Nurse Practitioner's notes and agree with the documented findings and plan of care Patient Condition at Discharge: Stable Plan - Discharge Summary New Discharge Prescriptions: New Cefuroxime Axetil [Ceftin] 500 mg PO BID 5 Days #10 tab Docusate [Colace] 100 mg PO BID 60 Days #30 cap Tamsulosin [Flomax] 0.4 mg PO PC-SUPPER #30 cap.er.24h Metoprolol Tartrate [Lopressor] 25 mg PO BID 30 Days #60 tablet Continue traMADol HCL [Ultram] 50 mg PO QID Cholecalciferol [Vitamin D3] 1,000 unit PO DAILY Lisinopril [Zestril] 10 mg PO DAILY Calcium Carbonate [Calcium] 600 mg PO DAILY Vit C/E/Zn/Coppr/Lutein/Zeaxan [Preservision Areds 2 Softgel] 1 cap PO BID Timolol 0.5% Ophth Soln [Timoptic 0.5% Ophth Soln] 1 drop LEFT EYE DAILY Multivitamins, Thera [Multivitamin (formulary)] 1 tab PO DAILY ALPRAZolam [Xanax] 0.25 mg PO BID PRN PRN Reason: Anxiety Ferrous Sulfate [Iron (65 MG Elemental)] 325 mg PO BID 30 Days #60 tab rOPINIRole HCL [Requip] 0.25 mg PO HS Desipramine [Norpramin] 25 mg PO HS Calcitonin Nasal [Fortical (Miacalcin)] 1 spray EA NOSTRIL DAILY oxyCODONE-APAP 7.5-325MG [Percocet 7.5-325 mg] 1 tab PO Q8HR PRN PRN Reason: Pain Discharge Medication List Calcium Carbonate [Calcium] 600 mg PO DAILY 08/13/16 [History] Cholecalciferol [Vitamin D3] 1,000 unit PO DAILY 08/13/16 [History] Lisinopril [Zestril] 10 mg PO DAILY 08/13/16 [History] traMADol HCL [Ultram] 50 mg PO QID 08/13/16 [History] Multivitamins, Thera [Multivitamin (formulary)] 1 tab PO DAILY 04/29/18 [History] Timolol 0.5% Ophth Soln [Timoptic 0.5% Ophth Soln] 1 drop LEFT EYE DAILY [History] Vit C/E/Zn/Coppr/Lutein/Zeaxan [Preservision Areds 2 Softgel] 1 cap PO BID 04/29/18 [History] ALPRAZolam [Xanax] 0.25 mg PO BID PRN 05/14/18 [History] Ferrous Sulfate [Iron (65 MG Elemental)] 325 mg PO BID 30 Days #60 tab 05/16/18 [Rx] Calcitonin Nasal [Fortical (Miacalcin)] 1 spray EA NOSTRIL DAILY 06/19/18 [History] Desipramine [Norpramin] 25 mg PO HS 06/19/18 [History] rOPINIRole HCL [Requip] 0.25 mg PO HS 06/19/18 [History] oxyCODONE-APAP 7.5-325MG [Percocet 7.5-325 mg] 1 tab PO Q8HR PRN 06/20/18 [History] Cefuroxime Axetil [Ceftin] 500 mg PO BID 5 Days #10 tab 06/21/18 [Rx] Docusate [Colace] 100 mg PO BID 60 Days #30 cap 06/21/18 [Rx] Metoprolol Tartrate [Lopressor] 25 mg PO BID 30 Days #60 tablet 06/21/18 [Rx] Tamsulosin [Flomax] 0.4 mg PO PC-SUPPER #30 cap.er.24h 06/21/18 [Rx] Follow up Appointment(s)/Referral(s): Tawnya Dale DO [Primary Care Provider] - 1-2 days Luis A Briones MD [STAFF PHYSICIAN] - 1 Week Activity/Diet/Wound Care/Special Instructions: [facility] [phone] Patient will be discharged home with indwelling Boykin catheter due to urinary retention. Patient will have home healthcare services. Patient to follow-up with urology services in 1 week. Activity as tolerated. Patient has TSLO brace at home Diet regular Discharge Disposition: HOME WITH HOME HEALTH SERVICES
== END 2018-06-21 14:57 | disposition home health service (06) | DRG 690 ==
LOC: EC 13:41 → UNDOADMOB 17:55 → 4SSUR 17:55 → 4MS4W 06-20 07:18 → 4SSUR 06-20 07:18 → 4MS4W 06-20 07:42 → OBSVTOIN 06-21 08:52
PROVIDERS: ADMIT Internal Medicine; ATTEND Internal Medicine
DX: N13.6 Pyonephrosis (principal); K91.86 Retained cholelithiasis following cholecystectomy; M41.9 Scoliosis, unspecified; R54 Age-related physical debility; D50.9 Iron deficiency anemia, unspecified; K56.41 Fecal impaction; G89.29 Other chronic pain; F17.200 Nicotine dependence, unspecified, uncomplicated; S32.010S Wedge compression fracture of first lumbar vertebra, sequela; R33.8 Other retention of urine; N21.0 Calculus in bladder; N81.10 Cystocele, unspecified; N81.6 Rectocele; I10 Essential (primary) hypertension; M81.0 Age-related osteoporosis without current pathological fracture; F41.9 Anxiety disorder, unspecified; Z79.891 Long term (current) use of opiate analgesic; Z79.899 Other long term (current) drug therapy; Z85.42 Personal history of malignant neoplasm of other parts of uterus; Z90.49 Acquired absence of other specified parts of digestive tract; Z90.710 Acquired absence of both cervix and uterus; Z87.440 Personal history of urinary (tract) infections; Z88.8 Allergy status to other drugs, medicaments and biological substances; Z83.3 Family history of diabetes mellitus; Z80.9 Family history of malignant neoplasm, unspecified
CPT/HCPCS: 36415; 74018; 76700; 80053; 81001; 83605; 85025; 87040; 87086; 93005; 96361; 96374; 99285